=== PATIENT | male | born 1975 | race Caucasian/White ===

== ENCOUNTER 2019-04-11 10:42 | Inpatient (IN) ==
--- NOTE | 2019-04-11 12:08 | XRay Report ---
XR chest 1V portable CLINICAL HISTORY: Sepsis COMPARISON STUDY: No previous studies for comparison. FINDINGS: The cardiac and mediastinal contours are normal. There is no evidence of focal pulmonary co nsolidation. There is no evidence of failure. No pleural effusions are visualized.[ IMPRESSION: No active disease in the chest. Electronically signed by: Temo Beal M.D. 04/11/2019 12:06 PM
[2019-04-11] MEDS ORDERED: ACETAMINOPHEN 1,000 MG/100 ML VIAL IV STA (12:18)
[2019-04-11] MEDS ORDERED: SODIUM CHLORIDE 0.9% 1000ML 2,000 ML IV ONE (12:18)
[2019-04-11 12:23] LABS: Basophils # (auto) 0.02 K/uL (0-0.2); Basophils % (auto) 0.2 %; Eosinophils # (auto) 0.01 K/uL (0-0.5); Eosinophils % (auto) 0.1 %; Hematocrit (blood only) 32.6 % (42-52); Hemoglobin 10.7 g/dL (14.0-18.0); Immature Granulocytes # (auto) 0.02 K/uL (0.00-0.02); Immature Granulocytes % (auto) 0.2 %; Lymphocytes % (auto) 11.9 %; Mean Corpuscular Hemoglobin 28.6 pg (25-34); Mean Corpuscular Hgb Conc 32.8 g/dL (32-36); Mean Corpuscular Volume 87.2 fL (80-100); Mean Platelet Volume 9.3 fL (7.4-10.4); Monocytes # (auto) 0.66 K/uL (0.11-0.59); Monocytes % (auto) 5.6 %; Neutrophils # (auto) 9.64 K/uL (1.4-6.5); Platelet Count 524 K/uL (130-400); RDW Coefficient of Variation 15.7 % (11.5-14.5); RDW Standard Deviation 50.7 fL (36.4-46.3); Red Blood Count 3.74 M/uL (4.7-6.1); White Blood Count 11.75 K/uL (4.8-10.8)
[2019-04-11 12:41] LABS: Alanine Aminotransferase 12 U/L (12-78); Albumin Level 3.4 gm/dl (3.4-5.0); Aspartate Aminotransferase 8 U/L (15-37); BUN Creatinine Ratio 6.6 (10-20); Blood Urea Nitrogen 6 mg/dl (7-18); Calcium 9.2 mg/dl (8.5-10.1); Carbon Dioxide 20 mmol/L (21-32); Chloride 107 mmol/L (98-107); Creatinine Clr Calc Pharmacy 104.6 ml/min; Est GFR (African American) 114.6; Est GFR (Non-African American) 98.9; Glucose 97 mg/dl (70-99); Potassium 3.3 mmol/L (3.5-5.1); Sodium 136 mmol/L (136-145)
[2019-04-11 12:46] LABS: Albumin Globulin Ratio 0.8 (0.9-2); Alkaline Phosphatase 113 U/L (45-117); Bilirubin,Total 0.3 mg/dl (0.2-1); Globulin 4.2 gm/dl (2.5-4.0); Total Protein 7.6 gm/dl (6.4-8.2); Troponin I < 0.015 ng/ml (0-0.045)
[2019-04-11 12:50] LABS: INR 1.1 (0.9-1.1); Partial Thromboplastin Ratio 0.9; Partial Thromboplastin Time 25.4 Seconds (21.0-31.0)
[2019-04-11] MEDS ORDERED: IOVERSOL 100ml IV PRN (13:16)
--- NOTE | 2019-04-11 13:55 | CT Scan Report ---
ABDOMEN AND PELVIS CT WITH IV CONTRAST CT DOSE: 445.45 mGy.cm HISTORY: Acute generalized abdominal pain patient with history of colon cancer. Acute sepsis. colon c a, rectal/abd pain TECHNIQUE: Multiaxial CT images of the abdomen and pelvis were performed following the IV administrat ion of 94 cc of Optiray 320, A dose lowering technique was utilized adhering to the principles of AL MICKEY. COMPARISON STUDY: Chest radiograph of same day FINDINGS: Lung bases are generally clear without evidence of pulmonary metastasis. Imaged inferior cardiac aisha bers are unremarkable. Spleen, pancreas, gallbladder and adrenal glands are unremarkable. There are m ultiple hepatic metastasis noted throughout the right left hepatic lobes measuring up to 4.8 cm and t he left lobe and 5.1 cm on the right. Patency of the hepatic and portal veins. No biliary ductal dila tion. Kidneys are unremarkable. There is mild right-sided pelvocaliectasis with mild prominence of th e proximal right ureter. Aorta and IVC are unremarkable. There are multiple prominent periaortic lymp h nodes measuring up to 8 mm in short axis. Moderate fecal retention. No bowel obstruction. Irregular mass of the distal sigmoid colon measures u p to approximately 3.3 x 3.3 cm on image 361 series 3 and extends through the serosa. Multiple enlarg ed lymph nodes/soft tissue nodules of the adjacent sigmoid mesocolon compatible with metastasis. Ther e is extensive surrounding inflammatory stranding with free fluid surrounding the sigmoid, rectum and perianal tissues. Soft tissue thickening/nodularity of the presacral tissues measures up to 4.3 x 1. 9 cm. There is a sinus tract/fistula extending from the sigmoid colon at the level of the mass into t he perisigmoidal, perirectal and perianal tissues which extends through the levator ani musculature i nto the right gluteus papo. Air and fluid within this distribution is noted compatible with perire ctal and gluteal abscess. The fluid collections themselves each measure approximately 1.2 cm. Soft ti ssue from the sigmoid colon mass extends towards the prostate and posterior base of the urinary bladd er. Tiny fat filled periumbilical hernia, diastases 1.5 cm. Colonic diverticulosis. The appendix is n ot diagnostically visualized. No evidence of osseous metastatic disease. IMPRESSION: 1. Large infiltrative mass of the distal sigmoid colon measuring up to 3.3 cm compatible with colorec ashia carcinoma. The mass extends through the serosa into the adjacent sigmoid mesocolon abutting the p rostate. There is a large associated perirectal/perianal fistula with extension through the levator a ni musculature into the right gluteus papo. Small associated perirectal, perianal and gluteal absc ess collections, predominantly containing air without significant drainable fluid. 2. Prominent periaortic lymph nodes with multiple metastatic nodes/soft tissue nodules of the pelvis as above. 3. Hepatic metastasis. 4. Moderate fecal retention without bowel obstruction identified. 5. Additional findings as above. Electronically signed by: James Lackey M.D. 04/11/2019 1:54 PM
[2019-04-11] MEDS ORDERED: VANCOMYCIN CONSULT ACTIVE PRN ×2 (14:31→19:51)
[2019-04-11] MEDS ORDERED: PIPERACILL/TAZOBAC CONSULT ACTIVE PRN ×2 (14:31→19:51)
[2019-04-11] MEDS ORDERED: PIPERACILLIN/TAZOBACTAM 4.5 GM/120 ML BAG IV ONE (14:31)
[2019-04-11] MEDS ORDERED: VANCOMYCIN HCL 1,750 MG in SODIUM CHLORIDE 0.9% 500 ML IV ONE (14:31)
--- NOTE | 2019-04-11 16:51 | Surgery Consultation ---
Date of Consultation April 11, 2019 Assessment & Plan (1) Colorectal cancer: No acute surgical findings. Would agree to treat with IV abx and bowel regimen. If condition deteriorates would transfer for IR or colorectal surgery. History of Present Illness History of Present Illness 43 y/o male recently diagnosed with colorectal cancer returned home to [place] after being diagnosed in the [facility] area. Had percutaneous drainage of abscess along with IV and po antibiotics. Drain fell out while he was raveling home. He finished the oral antibiotics 6 days ago. Has not been feeling well for the past few days, has rectal pressure, frequent BMs. Was scheduled to begin chemo today at [facility]. Has established with [facility]. Allergies Allergy/AdvReac Type Severity Reaction Status Date / Time No Known Allergies Allergy Unverified 04/11/19 11:28 Home Medications Home Medications Medication Instructions Recorded Confirmed Type trazodone 50 mg PO HS 04/11/19 04/11/19 History Patient History Social History Feels Safe at Home: Yes Smoking Status: Current every day smoker Review of Systems Constitutional: + anorexia; no fever, no chills and no sweats Gastrointestinal: no nausea and no vomiting Physical Exam Constitutional: WD/WN, vitals as above Gastrointestinal (Abdomen): Percussion/Palpation: abdomen soft; abdomen nontender Rectal Exam: normal visual inspection of rectum (right upper gluteal wound healed from perc drain) Results & Data Vital Signs (Past 12 Hours) Vital Signs Temp Pulse Pulse Resp BP BP Pulse Ox 04/11/19 14:40 37.2 C 89 18 140/87 96 04/11/19 13:00 87 16 125/82 100 04/11/19 11:50 97 H 20 117/87 98 04/11/19 11:47 100 04/11/19 11:00 101 H 16 121/75 100 04/11/19 10:45 36.6 C 107 H 20 130/81 100 Diagnostic Findings ABDOMEN AND PELVIS CT WITH IV CONTRAST CT DOSE: 445.45 mGy.cm HISTORY: Acute generalized abdominal pain patient with history of colon cancer. Acute sepsis. colon ca, rectal/abd pain TECHNIQUE: Multiaxial CT images of the abdomen and pelvis were performed following the IV administration of 94 cc of Optiray 320, A dose lowering technique was utilized adhering to the principles of ALARA. COMPARISON STUDY: Chest radiograph of same day FINDINGS: Lung bases are generally clear without evidence of pulmonary metastasis. Imaged inferior cardiac chambers are unremarkable. Spleen, pancreas, gallbladder and adrenal glands are unremarkable. There are multiple hepatic metastasis noted throughout the right left hepatic lobes measuring up to 4.8 cm and the left lobe and 5.1 cm on the right. Patency of the hepatic and portal veins. No biliary ductal dilation. Kidneys are unremarkable. There is mild right-sided pelvocaliectasis with mild prominence of the proximal right ureter. Aorta and IVC are unremarkable. There are multiple prominent periaortic lymph nodes measuring up to 8 mm in short axis. Moderate fecal retention. No bowel obstruction. Irregular mass of the distal sigmoid colon measures up to approximately 3.3 x 3.3 cm on image 361 series 3 and extends through the serosa. Multiple enlarged lymph nodes/soft tissue nodules of the adjacent sigmoid mesocolon compatible with metastasis. There is extensive surrounding inflammatory stranding with free fluid surrounding the sigmoid, rectum and perianal tissues. Soft tissue thickening/nodularity of the presacral tissues measures up to 4.3 x 1.9 cm. There is a sinus tract/fistula extending from the sigmoid colon at the level of the mass into the perisigmoidal, perirectal and perianal tissues which extends through the levator ani musculature into the right gluteus papo. Air and fluid within this distribution is noted compatible with perirectal and gluteal abscess. The fluid collections themselves each measure approximately 1.2 cm. Soft tissue from the sigmoid colon mass extends towards the prostate and posterior base of the urinary bladder. Tiny fat filled periumbilical hernia, diastases 1.5 cm. Colonic diverticulosis. The appendix is not diagnostically visualized. No evidence of osseous metastatic disease. IMPRESSION: 1. Large infiltrative mass of the distal sigmoid colon measuring up to 3.3 cm compatible with colorectal carcinoma. The mass extends through the serosa into the adjacent sigmoid mesocolon abutting the prostate. There is a large associated perirectal/perianal fistula with extension through the levator ani musculature into the right gluteus papo. Small associated perirectal, perianal and gluteal abscess collections, predominantly containing air without significant drainable fluid. 2. Prominent periaortic lymph nodes with multiple metastatic nodes/soft tissue nodules of the pelvis as above. 3. Hepatic metastasis. 4. Moderate fecal retention without bowel obstruction identified. 5. Additional findings as above. Electronically signed by: James Lackey M.D. 04/11/2019 1:54 PM PG Care Time/CCT Total # of Minutes Spent Total Time Spent with Patient: Total time spent is greater than 50% in coordin ation of care (as documented) at patient's floor/unit and/or counseling patient:
[2019-04-11] MEDS ORDERED: ALUMINUM/MAGNESIUM SUSP 30 ML UDC PO PRN (19:35)
[2019-04-11] MEDS ORDERED: MAGNESIUM HYDROXIDE SUSP 30 ML UDC PO PRN (19:35)
--- NOTE | 2019-04-11 19:59 | History & Physical Report ---
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 Proven by liver biopsy. At that time he got a drain placed and he was started on IV antibiotics then switched to oral antibiotics. During his travel to [place] where he grew up, the drain fell out. He continued the oral antibiotics until a week ago. Then today he started having some heaviness in the rectal area and feeling of urgency, multiple visits to the bathroom with no bowel movement, said slight clear discharge comes out. He denies any fever or chills but he felt that his infection is coming back, No family history of colorectal cancer. Admits to tobacco use but no alcohol CT scan abdomen and pelvis as below 1. Large infiltrative mass of the distal sigmoid colon measuring up to 3.3 cm compatible with colorectal carcinoma. The mass extends through the serosa into the adjacent sigmoid mesocolon abutting the prostate. There is a large associated perirectal/perianal fistula with extension through the levator ani musculature into the right gluteus papo. Small associated perirectal, perianal and gluteal abscess collections, predominantly containing air without significant drainable fluid. 2. Prominent periaortic lymph nodes with multiple metastatic nodes/soft tissue nodules of the pelvis as above. 3. Hepatic metastasis. 4. Moderate fecal retention without bowel obstruction identified. 5. Additional findings as above. Primary Care Provider: NO PCP Allergies Allergy/AdvReac Type Severity Reaction Status Date / Time No Known Allergies Allergy Unverified 04/11/19 11:28 Home Medications Home Medications Medication Instructions Recorded Confirmed Type trazodone 50 mg PO HS 04/11/19 04/11/19 History Past Med/Surg History Medical History Colon cancer Family History Other Family history non-contributory Social History marital status: Single Current Living Situation: Family current occupational status: unemployed Feels Safe at Home: Yes Smoking Status: Current every day smoker Review of Systems Review of Systems: Review of system Constitutional: No fever / no chills / no sweats / no weakness / no fatigue Eyes: no blurring of vision / no eye pain / no discharge / no redness ENT: no hearing loss / no epistaxis /no swallowing problems Respiratory: no cough / no wheezing / no SOB / no hemoptysis Cardiovascular: no Chest pain / no lower extremity edema / no palpitation Abdomen: Heaviness and pressure in pelvic area/ no nausea / no vomiting / no constipation Musculoskeletal: no joint pain / no muscle pain / no joint swelling Genitourinary: no dysuria / no incontinence / no urinary retention Neurologic: no focal weakness / no numbness/tingling / no ataxia Psychiatric: no depression symptoms / no anxiety / no insomnia Endocrine: no excessive thirst / no excessive urination Hematologic: no abnormal bleeding / no bruising / no LN swelling Skin: No rash / no pallor Physical Exam Physical Exam: Physical examination General patient appears to be comfortable, not in acute distress HEENT: Atraumatic , normocephalic /no jaundice /no pallor /anicteric /no dry mucous membrane /normal external ear inspection Neck: Supple /no swelling /central trach Heart: S1/S2 normal/regular rate and rhythm/no gallop /no rub /no murmur Lungs: Clear to auscultation bilaterally/normal chest with expansion/no rhonchi/no rales/no wheezing/no use of accessory muscles of respiration Abdomen: Soft/nontender/no guarding/no rebound/no organomegaly/no pulsatile mass Musculoskeletal: No swelling/no edema/no tenderness/normal range of motion Neuro exam: Awake alert oriented 3/cranial nerves II through XII appear to be intact/sensation intact/moves all extremities/no abnormal movements Psychiatric evaluation: No depressed mood/normal affect Skin: No rash on exposed skin area/no erythema Extremity: Normal pulse/no pitting edema/no clubbing or cyanosis Endocrine/lymphatic: No obvious lymphadenopathy /no lymphedema Refused rectal exam, said that already has been done today Results & Data Vital Signs (Past 12 Hours) Vital Signs Temp Pulse Pulse Resp BP BP Pulse Ox 04/11/19 18:25 84 16 140/83 100 04/11/19 14:40 37.2 C 89 18 140/87 96 04/11/19 13:00 87 16 125/82 100 04/11/19 11:50 97 H 20 117/87 98 04/11/19 11:47 100 04/11/19 11:00 101 H 16 121/75 100 04/11/19 10:45 36.6 C 107 H 20 130/81 100 Code Status & VTE Plan VTE Prophylaxis Plan VTE Prophylaxis will be ordered: Yes PG Care Time/CCT Total # of Minutes Spent Total Time Spent with Patient: 35 minutes total time spent is greater than 50% in coordination of care (as documented) at patient's floor/unit and/or counseli ng patient/family discussion of care with nursing staff (1) Colon cancer Colon location: unspecified part of colon Qualified Code(s): C18.9 - Malignant neoplasm of colon, unspecified
--- NOTE | 2019-04-11 20:21 | Emergency Department Note ---
Entered by Ivanna Pederson acting as a scribe for History of Present Illness General Chief complaint: Urinary Symptoms Stated complaint: FREQUENT NEED TO URINATE Time Seen by Provider: 04/11/19 12:09 Source: patient History of Present Illness Onset (ago): day(s) 3 Location: buttocks (rectal) Severity: similar to prior episodes (infection in colon) Pain Consistency: + other (worsening) Maximum Pain Intensity: 2 Quality: + other (pressure like needs to move bowels) Associated symptoms: + denies other symptoms (burning with urination, congestio n, hematochezia, melena, diarrhea), + loss of appetite and + other (lower abdominal pain); no cough, no fever/chills (fever) and no nausea/vomiting (nausea) The patient is a 43 year old male who presents to the Emergency Room with complaints of worsening rectal pain starting 3 days ago. The patient states that a month ago he was diagnosed with cancer. He states that he was having this slight rectal pain and lower abdominal pain. He states that when he went to the hospital, they ended up diagnosing him with a cyst that was infected in his colon and colon cancer that metastasized to his liver. He reports that he was diagnosed where he had been living in [place], [place] for 16 years, but he moved here since his family is here to be closer to them. He notes that they started him on antibiotics that he stopped 6 days ago. The patient states that since then he has been following with [place] for his cancer. He reports that he met with Dr. Mane- Colorectal Surgeon in [place] 1.5 weeks ago and he expressed concern that his infection may return. He states that he then met with Dr. Cannon- Oncologist in [place] who was going to start him on chemo today, but he said that for the last 3 days he has had new more intense symptoms. The patient states that for the last 3 days he has had rectal pain that is much worse that slightly reminds him of when he had his infection. He reports that it feels like a pressure. He notes that he has also had the urge to move his bowels all the time and cannot get off the toilet because of it. He states that most of the time when he has this feeling, he is moving his bowels. He reports that it is definitely larger bowel movements in the morning and smaller ones at night. The patient states that he did call his colorectal surgeon in [place] before coming in, but he is in surgery all day and decided it be best he come to the ED to figure out what is going on. The patient complains of a loss of appetite. The patient denies burning with urination, fever, cough, congestion, hematochezia, melena, diarrhea, and nausea. 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 and A total of 10 systems reviewed and were otherwise negative Physical Exam Vital Signs Vital Signs - 24 hr 04/11/19 10:45 04/11/19 11:00 04/11/19 11:47 Temperature 36.6 C Temperature Source Oral Sepsis Recent Fever Within 48 Hours No Sepsis Action Taken by Nursing No Action Required Pulse Rate 107 H Pulse Rate [Finger] 101 H Pulse Rhythm Regular Pulse Strength Normal Respiratory Rate 20 16 Respiratory Effort / Characteristics Non-Labored Spontaneous Respiratory Depth Normal Respiratory Pattern Regular Blood Pressure 130/81 Blood Pressure [Right Arm] 121/75 Blood Pressure Mean 97 Blood Pressure Mean [Right Arm] 90 Blood Pressure Position Sitting Blood Pressure Position [Right Arm] Pulse Oximetry 100 100 100 Oxygen Delivery Method Room Air Room Air Room Air 04/11/19 11:50 04/11/19 13:00 04/11/19 14:40 Temperature 37.2 C Temperature Source Oral Sepsis Recent Fever Within 48 Hours Sepsis Action Taken by Nursing Pulse Rate Pulse Rate [Finger] 97 H 87 89 Pulse Rhythm Pulse Strength Respiratory Rate 20 16 18 Respiratory Effort / Characteristics Non-Labored Spontaneous Respiratory Depth Normal Respiratory Pattern Regular Blood Pressure Blood Pressure [Right Arm] 117/87 125/82 140/87 Blood Pressure Mean Blood Pressure Mean [Right Arm] 97 96 104 Blood Pressure Position Blood Pressure Position [Right Arm] Lying Pulse Oximetry 98 100 96 Oxygen Delivery Method Room Air Room Air 04/11/19 18:25 Temperature Temperature Source Sepsis Recent Fever Within 48 Hours Sepsis Action Taken by Nursing Pulse Rate Pulse Rate [Finger] 84 Pulse Rhythm Pulse Strength Respiratory Rate 16 Respiratory Effort / Characteristics Respiratory Depth Respiratory Pattern Blood Pressure Blood Pressure [Right Arm] 140/83 Blood Pressure Mean Blood Pressure Mean [Right Arm] 102 Blood Pressure Position Blood Pressure Position [Right Arm] Pulse Oximetry 100 Oxygen Delivery Method GENERAL: Awake, alert, fatigued-appearing, in no distress HENT: Normocephalic, atraumatic. Oropharynx with dry mucous membranes and otherwise unremarkable. EYES: Normal conjunctiva. Sclera non-icteric. NECK: Supple. No nuchal rigidity. FROM. No JVD. RESPIRATORY: Clear to auscultation bilaterally. CARDIAC: Regular rate, normal rhythm. Extremities warm and well perfused. Pulses equal. ABDOMEN: Soft, non-distended. No tenderness to palpation. No rebound or guarding. No masses. RECTAL: No peritoneal/gluteal edema, erythema, or tenderness. Rectal exam without palpable areas of fluctuance or tenderness. MUSCULOSKELETAL: Chest examination reveals no tenderness. The back is symmetrical on inspection without obvious abnormality. There is no CVA tenderness to palpation. No joint edema. LOWER EXTREMITIES: Calves are equal size bilaterally and non-tender. No edema. No discoloration. NEURO: Normal sensorium. No sensory or motor deficits noted. SKIN: No rash or jaundice noted. Course 1216: The patient was evaluated in room C11B. A complete history and physical exam was performed. 1454: I reevaluated the patient and updated him on his test results at this time. 1530: I discussed the margie's case with the surgeon from [place]. He states that if the patient has no necrotizing fascitis, then he needs to be transferred to [facility] if our surgeon will not intervene. He states that if the patient does have necrotizing fascitis, then our surgeon will need to intervene immediately. 1540: I reevaluated the patient and performed a rectal exam at this time. I discussed his test results and the treatment plan with him at this time. He verbally agrees and understands. 1612: I discussed the patient's case with Aly Perez PA-C -General Surgeon. He states that they do not need to do a surgical intervention at this time, but are willing to consult with internal medicine for IV antibiotics. 1651: I discussed the patient's case with Dr. Swartz- Colorectal Surgeon. He agrees with the plan to keep the patient here. 1722: I discussed the patient's case with Dr. Yao- [facility]. He will evaluate the patient for further management. Administered Medications Acetaminophen (Tylenol) 650 mg PO Q4H PRN PRN Reason: pain/fever Stop: 05/11/19 19:34 Last Admin: 04/13/19 23:03 Dose: 650 mg Documented by: [id number] Admin: 04/13/19 15:08 Dose: 650 mg Documented by: [id number] Admin: 04/12/19 08:14 Dose: 650 mg Documented by: [id number] Docusate Sodium (Colace) 100 mg PO BID KATHERINE Stop: 05/12/19 20:59 Last Admin: 04/13/19 20:08 Dose: 100 mg Documented by: [id number] Admin: 04/13/19 08:17 Dose: 100 mg Documented by: [id number] Admin: 04/12/19 21:13 Dose: 100 mg Documented by: [id number] Enoxaparin Sodium (Lovenox) 40 mg SQ QPM KATHERINE Stop: 05/12/19 20:59 Last Admin: 04/13/19 20:09 Dose: 40 mg Documented by: [id number] Admin: 04/12/19 21:13 Dose: 40 mg Documented by: [id number] Vancomycin HCl 1,250 mg/ (Sodium Chloride) 275 mls @ 125 mls/hr IV Q8H KATHERINE Stop: 04/22/19 00:00 Last Admin: 04/13/19 22:27 Dose: 125 mls/hr Documented by: [id number] Infusion: 04/13/19 17:17 Dose: 0 mls/hr Documented by: [id number] Admin: 04/13/19 15:05 Dose: 125 mls/hr Documented by: [id number] Lactated Ringer's (Lr) 1,000 mls @ 999 mls/hr IV .Q1H1M ONE Stop: 04/14/19 00:46 Last Admin: 04/14/19 00:01 Dose: 999 mls/hr Documented by: [id number] Ioversol (Optiray 320 100ml) 94 ml IV ONCE PRN PRN Reason: Interaction Checking Stop: 04/15/19 13:15 Last Admin: 04/11/19 13:16 Dose: 94 ml Documented by: [id number] Morphine Sulfate (Morphine Sulfate) 2 mg IV Q2H PRN PRN Reason: Severe Pain Stop: 04/25/19 19:51 Last Admin: 04/13/19 23:06 Dose: 2 mg Documented by: [id number] Admin: 04/13/19 20:07 Dose: 2 mg Documented by: [id number] Admin: 04/13/19 15:55 Dose: 2 mg Documented by: [id number] Admin: 04/13/19 13:10 Dose: 2 mg Documented by: [id number] Admin: 04/13/19 04:46 Dose: 2 mg Documented by: [id number] Admin: 04/12/19 20:56 Dose: 2 mg Documented by: [id number] Admin: 04/12/19 18:47 Dose: 2 mg Documented by: [id number] Oxycodone HCl (Roxicodone Immediate Rel) 10 mg PO Q4H PRN PRN Reason: Moderate Pain Stop: 04/26/19 18:25 Last Admin: 04/13/19 08:16 Dose: 10 mg Documented by: [id number] Polyethylene Glycol (Miralax Powder Packet) 17 gm PO BID KATHERINE Stop: 05/13/19 08:59 Last Admin: 04/13/19 20:09 Dose: 17 gm Documented by: [id number] Admin: 04/13/19 08:51 Dose: 17 gm Documented by: [id number] Trazodone HCl (Desyrel) 50 mg PO HS KATHERINE Stop: 05/11/19 20:59 Last Admin: 04/13/19 20:08 Dose: 50 mg Documented by: [id number] Admin: 04/12/19 21:13 Dose: 50 mg Documented by: [id number] Admin: 04/11/19 21:47 Dose: 50 mg Documented by: [id number] Discontinued Medications Heparin Sodium (Porcine) (Heparin Sodium (Porcine)) 5,000 units SQ Q8 KATHERINE Stop: 05/11/19 21:59 Last Admin: 04/12/19 13:23 Dose: Not Given Documented by: [id number] Admin: 04/12/19 06:00 Dose: Not Given Documented by: [id number] Admin: 04/11/19 21:47 Dose: Not Given Documented by: [id number] Acetaminophen (Ofirmev) 1,000 mg in 100 mls @ 400 mls/hr IV NOW STA Stop: 04/11/19 12:32 Last Infusion: 04/11/19 12:45 Dose: 0 mls/hr Documented by: [id number] Admin: 04/11/19 12:28 Dose: 400 mls/hr Documented by: [id number] Sodium Chloride (Nss 1000ml) 2,000 mls @ 999 mls/hr IV .Q2H1M ONE Stop: 04/11/19 14:18 Last Infusion: 04/11/19 14:37 Dose: 0 mls/hr Documented by: [id number] Admin: 04/11/19 12:28 Dose: 999 mls/hr Documented by: [id number] Piperacillin Sod/Tazobactam Sod (Zosyn) 4.5 gm in 120 mls @ 240 mls/hr IV NOW ONE Stop: 04/11/19 15:00 Last Infusion: 04/11/19 15:13 Dose: 0 mls/hr Documented by: [id number] Admin: 04/11/19 14:41 Dose: 240 mls/hr Documented by: [id number] Vancomycin HCl 1,750 mg/ (Sodium Chloride) 535 mls @ 200 mls/hr IV NOW ONE Stop: 04/11/19 17:11 Last Infusion: 04/11/19 18:20 Dose: 0 mls/hr Documented by: [id number] Admin: 04/11/19 15:31 Dose: 200 mls/hr Documented by: [id number] Piperacillin Sod/Tazobactam (Sod 3.375 gm/ Dextrose) 115 mls @ 28.75 mls/hr IV Q8H KATHERINE; Protocol Stop: 04/21/19 21:29 Last Infusion: 04/14/19 00:01 Dose: 0 mls/hr Documented by: [id number] Admin: 04/13/19 21:09 Dose: 28.8 mls/hr Documented by: [id number] Infusion: 04/13/19 17:35 Dose: 0 mls/hr Documented by: [id number] Admin: 04/13/19 13:34 Dose: 28.8 mls/hr Documented by: [id number] Infusion: 04/13/19 08:50 Dose: 0 mls/hr Documented by: [id number] Admin: 04/13/19 04:47 Dose: 28.8 mls/hr Documented by: [id number] Infusion: 04/13/19 00:47 Dose: 0 mls/hr Documented by: [id number] Admin: 04/12/19 20:56 Dose: 28.8 mls/hr Documented by: [id number] Infusion: 04/12/19 17:23 Dose: 0 mls/hr Documented by: [id number] Admin: 04/12/19 13:20 Dose: 28.8 mls/hr Documented by: [id number] Infusion: 04/12/19 13:20 Dose: 0 mls/hr Documented by: [id number] Infusion: 04/12/19 10:00 Dose: 0 mls/hr Documented by: [id number] Admin: 04/12/19 06:01 Dose: 28.8 mls/hr Documented by: [id number] Infusion: 04/12/19 01:20 Dose: 0 mls/hr Documented by: [id number] Admin: 04/11/19 21:47 Dose: 28.8 mls/hr Documented by: [id number] Vancomycin HCl 1,250 mg/ (Sodium Chloride) 275 mls @ 125 mls/hr IV Q10H KATHERINE Stop: 04/22/19 00:00 Last Infusion: 04/13/19 08:14 Dose: 0 mls/hr Documented by: [id number] Admin: 04/13/19 06:02 Dose: 125 mls/hr Documented by: [id number] Infusion: 04/12/19 23:22 Dose: 0 mls/hr Documented by: [id number] Admin: 04/12/19 20:56 Dose: 125 mls/hr Documented by: [id number] Infusion: 04/12/19 13:16 Dose: 0 mls/hr Documented by: [id number] Admin: 04/12/19 11:02 Dose: 125 mls/hr Documented by: [id number] Infusion: 04/12/19 02:55 Dose: 0 mls/hr Documented by: [id number] Admin: 04/12/19 00:30 Dose: 125 mls/hr Documented by: [id number] Morphine Sulfate (Morphine Sulfate) 1 mg IV Q4HWA PRN PRN Reason: Pain Stop: 04/25/19 19:51 Last Admin: 04/12/19 17:00 Dose: 1 mg Documented by: [id number] Admin: 04/11/19 22:01 Dose: 1 mg Documented by: [id number] Polyethylene Glycol (Miralax Powder Packet) 17 gm PO DAILY KATHERINE Stop: 05/11/19 19:44 Last Admin: 04/12/19 10:01 Dose: 17 gm Documented by: [id number] Admin: 04/11/19 21:47 Dose: 17 gm Documented by: [id number] Polyethylene Glycol (Miralax Powder Packet) 17 gm PO DAILY KATHERINE Stop: 05/12/19 18:29 Last Admin: 04/12/19 18:47 Dose: 17 gm Documented by: [id number] Impression & Plan Colon cancer, H/O abdominal abscess, Leukocytosis, Perirectal abscess, Perianal fistula Discharge Plan Visit Data *Final* Discharge Date/Time: 04/11/19 20:42 Chief Complaint: Urinary Symptoms Stated Complaint: FREQUENT NEED TO URINATE ED Provider: Grant Rojas Discharge Problem: Colon cancer, H/O abdominal abscess, Leukocytosis, Perirectal abscess, Perianal fistula Patient Disposition: Admitted As Inpatient Discharge Instructions Interventions: ED Discharge Assessment Last Done: 04/11/19 20:42 Medical Decision Making Differential Diagnosis Differential diagnoses includes but is not limited to gastritis, peptic ulcer disease, GERD, gallbladder disease, pancreatitis, small bowel obstruction, acute coronary syndrome, pericarditis, ischemic bowel, irritable bowel disease, irritable bowel syndrome, appendicitis, diverticulitis, malignancy, hernia, urinary tract infection, torsion, perforation, trauma, infectious. Medical Records Attestation: I reviewed the patient's medical records. Home Medications Current Medication List: was personally reviewed by me Laboratory Data Attestation: I reviewed the patient's lab results. Result diagrams: 04/13/19 05:26 04/13/19 05:26 Lab Results 04/11/19 04/11/19 04/11/19 Range/Units 11:57 11:57 11:57 WBC 11.75 H (4.8-10.8) K/uL RBC 3.74 L (4.7-6.1) M/uL Hgb 10.7 L (14.0-18.0) g/dL Hct 32.6 L (42-52) % MCV 87.2 (80-100) fL MCH 28.6 (25-34) pg MCHC 32.8 (32-36) g/dL RDW Std Deviation 50.7 H (36.4-46.3) fL RDW Coeff of Torie 15.7 H (11.5-14.5) % Plt Count 524 H (130-400) K/uL MPV 9.3 (7.4-10.4) fL Immature Gran % (Auto) 0.2 % Neut % (Auto) 82.0 % Lymph % (Auto) 11.9 % [place] % (Auto) 5.6 % Eos % (Auto) 0.1 % Baso % (Auto) 0.2 % Immature Gran # (Auto) 0.02 (0.00-0.02) K/uL Neut # (Auto) 9.64 H (1.4-6.5) K/uL Lymph # (Auto) 1.40 (1.2-3.4) K/uL [place] # (Auto) 0.66 H (0.11-0.59) K/uL Eos # (Auto) 0.01 (0-0.5) K/uL Baso # (Auto) 0.02 (0-0.2) K/uL PT 11.0 (9.0-12.0) Seconds INR 1.1 (0.9-1.1) APTT 25.4 (21.0-31.0) Seconds PTT Ratio 0.9 Sodium 136 (136-145) mmol/L Potassium 3.3 L (3.5-5.1) mmol/L Chloride 107 (98-107) mmol/L Carbon Dioxide 20 L (21-32) mmol/L Anion Gap 9.0 (3-11) BUN 6 L (7-18) mg/dl Creatinine 0.94 (0.6-1.4) mg/dl Est Cr Clr Drug Dosing 104.6 ml/min Est GFR ( Amer) 114.6 Est GFR (Non-Af Amer) 98.9 BUN/Creatinine Ratio 6.6 L (10-20) Glucose 97 (70-99) mg/dl POC Lactic Acid Carlos (0.90-1.70) mmol/L Calcium 9.2 (8.5-10.1) mg/dl Magnesium 2.0 (1.8-2.4) mg/dl Total Bilirubin 0.3 (0.2-1) mg/dl AST 8 L (15-37) U/L ALT 12 (12-78) U/L Alkaline Phosphatase 113 (45-117) U/L Troponin I < 0.015 (0-0.045) ng/ml Total Protein 7.6 (6.4-8.2) gm/dl Albumin 3.4 (3.4-5.0) gm/dl Globulin 4.2 H (2.5-4.0) gm/dl Albumin/Globulin Ratio 0.8 L (0.9-2) 04/11/19 Range/Units 12:04 WBC (4.8-10.8) K/uL RBC (4.7-6.1) M/uL Hgb (14.0-18.0) g/dL Hct (42-52) % MCV (80-100) fL MCH (25-34) pg MCHC (32-36) g/dL RDW Std Deviation (36.4-46.3) fL RDW Coeff of Torie (11.5-14.5) % Plt Count (130-400) K/uL MPV (7.4-10.4) fL Immature Gran % (Auto) % Neut % (Auto) % Lymph % (Auto) % [place] % (Auto) % Eos % (Auto) % Baso % (Auto) % Immature Gran # (Auto) (0.00-0.02) K/uL Neut # (Auto) (1.4-6.5) K/uL Lymph # (Auto) (1.2-3.4) K/uL [place] # (Auto) (0.11-0.59) K/uL Eos # (Auto) (0-0.5) K/uL Baso # (Auto) (0-0.2) K/uL PT (9.0-12.0) Seconds INR (0.9-1.1) APTT (21.0-31.0) Seconds PTT Ratio Sodium (136-145) mmol/L Potassium (3.5-5.1) mmol/L Chloride (98-107) mmol/L Carbon Dioxide (21-32) mmol/L Anion Gap (3-11) BUN (7-18) mg/dl Creatinine (0.6-1.4) mg/dl Est Cr Clr Drug Dosing ml/min Est GFR ( Amer) Est GFR (Non-Af Amer) BUN/Creatinine Ratio (10-20) Glucose (70-99) mg/dl POC Lactic Acid Carlos 1.18 (0.90-1.70) mmol/L Calcium (8.5-10.1) mg/dl Magnesium (1.8-2.4) mg/dl Total Bilirubin (0.2-1) mg/dl AST (15-37) U/L ALT (12-78) U/L Alkaline Phosphatase (45-117) U/L Troponin I (0-0.045) ng/ml Total Protein (6.4-8.2) gm/dl Albumin (3.4-5.0) gm/dl Globulin (2.5-4.0) gm/dl Albumin/Globulin Ratio (0.9-2) Imaging Data Radiologist's Impression: Radiology results as stated below per my review and the radiologist's interpretation: XR chest 1V portable CLINICAL HISTORY: Sepsis COMPARISON STUDY: No previous studies for comparison. FINDINGS: The cardiac and mediastinal contours are normal. There is no evidence of focal pulmonary consolidation. There is no evidence of failure. No pleural effusions are visualized.[ IMPRESSION: No active disease in the chest. Electronically signed by: Temo Beal M.D. 04/11/2019 12:06 PM ABDOMEN AND PELVIS CT WITH IV CONTRAST CT DOSE: 445.45 mGy.cm HISTORY: Acute generalized abdominal pain patient with history of colon cancer. Acute sepsis. colon ca, rectal/abd pain TECHNIQUE: Multiaxial CT images of the abdomen and pelvis were performed following the IV administration of 94 cc of Optiray 320, A dose lowering technique was utilized adhering to the principles of ALARA. COMPARISON STUDY: Chest radiograph of same day FINDINGS: Lung bases are generally clear without evidence of pulmonary metastasis. Imaged inferior cardiac chambers are unremarkable. Spleen, pancreas, gallbladder and adrenal glands are unremarkable. There are multiple hepatic metastasis noted throughout the right left hepatic lobes measuring up to 4.8 cm and the left lobe and 5.1 cm on the right. Patency of the hepatic and portal veins. No biliary ductal dilation. Kidneys are unremarkable. There is mild right-sided pelvocaliectasis with mild prominence of the proximal right ureter. Aorta and IVC are unremarkable. There are multiple prominent periaortic lymph nodes measuring up to 8 mm in short axis. Moderate fecal retention. No bowel obstruction. Irregular mass of the distal s igmoid colon measures up to approximately 3.3 x 3.3 cm on image 361 series 3 and extends through the serosa. Multiple enlarged lymph nodes/soft tissue nodules of the adjacent sigmoid mesocolon compatible with metastasis. There is extensive surrounding inflammatory stranding with free fluid surrounding the sigmoid, rectum and perianal tissues. Soft tissue thickening/nodularity of the presacral tissues measures up to 4.3 x 1.9 cm. There is a sinus tract/fistula extending from the sigmoid colon at the level of the mass into the perisigmoidal, perirectal and perianal tissues which extends through the levator ani musculature into the right gluteus papo. Air and fluid within this distribution is noted compatible with perirectal and gluteal abscess. The fluid collections themselves each measure approximately 1.2 cm. Soft tissue from the sigmoid colon mass extends towards the prostate and posterior base of the urinary bladder. Tiny fat filled periumbilical hernia, diastases 1.5 cm. Colonic diverticulosis. The appendix is not diagnostically visualized. No evidence of osseous metastatic disease. IMPRESSION: 1. Large infiltrative mass of the distal sigmoid colon measuring up to 3.3 cm co mpatible with colorectal carcinoma. The mass extends through the serosa into the adjacent sigmoid mesocolon abutting the prostate. There is a large associated perirectal/perianal fistula with extension through the levator ani musculature into the right gluteus papo. Small associated perirectal, perianal and gluteal abscess collections, predominantly containing air without significant drainable fluid. 2. Prominent periaortic lymph nodes with multiple metastatic nodes/soft tissue nodules of the pelvis as above. 3. Hepatic metastasis. 4. Moderate fecal retention without bowel obstruction identified. 5. Additional findings as above. Electronically signed by: James Lackey M.D. 04/11/2019 1:54 PM ECG Data Attestation: I personally reviewed and interpreted this ECG as follows: Indication: + abdominal pain Rate (beats per minute): 94 Rhythm: + normal sinus ECG [place]: + Normal ECG ST segments: no ST depression and no ST elevation ECG Findings: + Other (QT-c 437); no PACs and no PVCs Blood Pressure Blood Pressure Findings: Elevated blood pressure Blood Pressure Disposition: further management by hospitalist JANE High The patient is a pleasant 46-year-old gentleman with a past medical history of a recent diagnosis of colon cancer last month when he was traveling in [place] found to have an associated colorectal abscess that was drained and treated with IV antibiotics, subsequently discharged with drain in place but was dislodged prematurely when flying back to the [facility] seen at outside hospital in [place] with CT scan that did not demonstrate any re-accumulation of a drainable collection and patient was still on antibiotics therefore was discharged with outpatient follow-up who now presents emergency department with worsening rectal pain particular with defecation and is concern for return of his previous infection per hpi. Of note, the patient reports he was scheduled to begin chemotherapy today and is following with [facility] colorectal surgery , and oncology., He reports because his symptoms were becoming increasingly painful he came to the emergency department as he was told that he not begin chemotherapy if his infection is actively returned. On arrival patient is comfortable but no acute distress, afebrile stable vital signs. Patient appears clinically dry. His abdomen is benign. The genital anal/perineal area is unremarkable without skin changes edema crepitus or tenderness. Rectal exam without any palpable rectal abscess, fissures, or fistulas. WBC slightly elevated at 11. Chemistry without acidosis. Electrolytes and LFTs unremarkable. CT and pelvis was performed and demonstrated patient's known colorectal mass with additional evidence of extension into the musculature with fistulization. Also seen are areas consistent with abscess formation though mostly air-filled without any drainable fluid collection. Given the patient's report of having a CAT scan also not showing any "drainable collection" unclear to the extent that these findings are new/worse versus similar. There is evidence of fecal retention which given the patient's inflammatory changes would also explain the patient's pain. However given the patient's new symptoms will treat empirically with IV antibiotics. Case was discussed with Dr. Swartz, colorectal surgery on-call for the patient's surgeon who agreed that given the patient is hemodynamically stable without any evidence of need for emergent surgery could be reasonable to admit here if our surgery team was agreeable. Case was discussed with Aly Perez, general surgery PA-Reza with, Dr. Coyle general surgeon and they agree with plan to admit here to the medicine service with IV antibiotics and they will be available for inpatient consultation. However patient would not likely require surgery at this time. If patient were to worsen then he would need transfer to [facility] for intervention. Case was discussed with Dr. Yao, [facility] hospitalist, who will evaluate the patient for admission. Discharge Problem: Colon cancer Qualifiers: Colon location: unspecified part of colon Qualified Code(s): C18.9 - Malignant neoplasm of colon, unspecified The scribe's documentation has been prepared under my direction and personally reviewed by me in its entirety. I confirm that the note above accurately reflects all work, treatment, procedures, and medical decision making performed by me.
[2019-04-11] MEDS ORDERED: PIPERACILLIN/TAZOBACTAM 4.5 GM in DEXTROSE 5% 100 ML IV SCH (21:00)
[2019-04-11] MEDS: PIPERACILLIN/TAZOBACTAM 3.375 GM in DEXTROSE 5% 100 ML IV SCH (21:47)
[2019-04-11] MEDS: HEPARIN SOD 5,000 UNIT/0.5 ML VIAL SQ SCH (21:47)
[2019-04-11] MEDS: TRAZODONE HCL 50 MG TAB PO SCH (21:47)
[2019-04-11] MEDS: POLYETHYLENE (MIRALAX) 17 GM PACK PO SCH (21:47)
[2019-04-11] MEDS: MoRPHine SULFATE 2 MG/ML CARP IV PRN (22:01)
[2019-04-11 23:38] LABS: Appearance Urine Clear (Clear); Bilirubin Urine Negative (Negative); Blood Urine Negative (Negative); Color Urine Yellow; Glucose Urine UA Negative (Negative); Ketones Urine Negative (Negative); Leukocyte Esterase Urine Negative (Negative); Nitrite Urine Negative (Negative); Protein Urine Negative (Negative); Urobilinogen Urine Negative (Negative)
[2019-04-12] MEDS: VANCOMYCIN HCL 1,250 MG in SODIUM CHLORIDE 0.9% 250 ML IV SCH ×3 (00:30→20:56)
[2019-04-12] MEDS: HEPARIN SOD 5,000 UNIT/0.5 ML VIAL SQ SCH ×2 (06:00→13:23)
[2019-04-12] MEDS: PIPERACILLIN/TAZOBACTAM 3.375 GM in DEXTROSE 5% 100 ML IV SCH ×3 (06:01→20:56)
--- NOTE | 2019-04-12 07:45 | Infectious Disease Consult ---
Date of Consultation April 12, 2019 Assessment & Plan (1) Perirectal abscess: 43-year-old male with metastatic colorectal cancer, with abdominal and pelvic infection in the setting of cancer mass to the bowel wall with fistula formation, with small abscesses seen on CT scan. For now, pending further culture results, vancomycin and Zosyn should provide adequate coverage. Will likely need to stay on antibiotics until source control can be achieved. Will discuss further with all involved. Will follow. (2) Colorectal cancer: History of Present Illness Reason for Consultation: Rectal abscess Attending Physician: Travis Sargent MD History of Present Illness Very pleasant but unfortunate 43-year-old male who was diagnosed approximately 6 weeks ago with metastatic colon cancer, found to have evidence of perirectal abscess which required drain placement. He was treated with IV antibiotics and discharged on Augmentin and returned back to [place]. During his travel, drain fell out. He saw his new colorectal surgeons last week, who felt that antibiotics could be safely discontinued, and was planned to start chemotherapy. However he was now readmitted with several days of progressively worsening pelvic pain. On CT scan was found to have large sigmoid mass with extension through the serosa, with fistulous tract extending into the perirectal and gluteal area, with evidence of small abscess formation. Was seen by surgery and no acute intervention was planned. He has been started empirically on vancomycin and Zosyn, which she has been tolerating so far. He denies any significant fever. Still with significant amount of pain, currently 5 out of 10 in intensity. Allergies Allergy/AdvReac Type Severity Reaction Status Date / Time No Known Allergies Allergy Unverified 04/11/19 11:28 Home Medications Home Medications Medication Instructions Recorded Confirmed Type trazodone 50 mg PO HS 04/11/19 04/11/19 History Patient History Medical History Colon cancer Family History Other Family history non-contributory Social History Preferred Language: Pashto Communication Ability: Effective Mate Fishing Vessel Required: No Beliefs That Will Affect Care: None marital status: Single Current Living Situation: Parent current occupational status: unemployed Feels Safe at Home: Yes Smoking Status: Current every day smoker Tobacco Type: cigarettes ; Cigarettes Per Day: 5 ; Second Hand Exposure: Yes ; Hx Alcohol Use: No Hx Substance Use: No Review of Systems Review of Systems: All systems reviewed & are unremarkable except as noted in HPI & below Physical Exam Constitutional: WD/WN, vitals as above comfortable; no acute distress Eyes: PERRL, conjunctivae normal, anicteric sclerae ENMT: external ear and nose normal, oropharynx normal Neck: trachea midline, no thyromegaly neck nontender Respiratory: normal respiratory effort, lungs clear to auscultation normal percussion; does not use accessory muscles Cardiovascular: Rate/Rhythm: regular rate and regular rhythm Heart Sounds: normal S1 and normal S2; no gallop, no murmur and no cardiac rub Vessels: normal peripheral pulses; no JVD Gastrointestinal (Abdomen): normal bowel sounds, soft, nontender, no hepatosplenomegaly Musculoskeletal: no cyanosis or clubbing, extremities motor strength 5/5 Spine: thoracic spine normal to inspection and lumbar spine normal to inspection; no cervical spinal tenderness Skin: no rashes, warm and dry normal turgor; no lesions Neurologic: moves all extremities and awake; no focal motor deficits and no meningeal signs Psychiatric: A+Ox3, euthymic affect Orientation: cooperative Lymphatic: no cervical or axillary lymphadenopathy no inguinal lymphadenopathy Results & Data Vital Signs (Past 12 Hours) Vital Signs Temp Pulse Resp BP Pulse Ox 04/11/19 23:15 36.8 C 85 16 134/82 98 04/11/19 21:20 36.8 C 75 18 123/80 100 04/11/19 20:00 75 20 126/81 100 Laboratory Results Short CBC 04/11/19 Range/Units 11:57 WBC 11.75 H (4.8-10.8) K/uL Hgb 10.7 L (14.0-18.0) g/dL Hct 32.6 L (42-52) % Plt Count 524 H (130-400) K/uL BMP 04/11/19 11:57 Sodium 136 Potassium 3.3 L Chloride 107 Carbon Dioxide 20 L BUN 6 L Creatinine 0.94 Glucose 97 Calcium 9.2 Cardiac Enzymes 04/11/19 Range/Units 11:57 Troponin I < 0.015 (0-0.045) ng/ml Liver Function 04/11/19 Range/Units 11:57 Total Bilirubin 0.3 (0.2-1) mg/dl AST 8 L (15-37) U/L ALT 12 (12-78) U/L Alkaline Phosphatase 113 (45-117) U/L Albumin 3.4 (3.4-5.0) gm/dl Urine 04/11/19 Range/Units Unknown Urine Color Yellow Urine Appearance Clear (Clear) Urine pH 6.0 (4.5-7.5) Ur Specific [place] 1.010 (1.000-1.030) Urine Protein Negative (Negative) Urine Glucose (UA) Negative (Negative) Diagnostic Findings ABDOMEN AND PELVIS CT WITH IV CONTRAST CT DOSE: 445.45 mGy.cm HISTORY: Acute generalized abdominal pain patient with history of colon cancer. Acute sepsis. colon ca, rectal/abd pain TECHNIQUE: Multiaxial CT images of the abdomen and pelvis were performed following the IV administration of 94 cc of Optiray 320, A dose lowering technique was utilized adhering to the principles of ALARA. COMPARISON STUDY: Chest radiograph of same day FINDINGS: Lung bases are generally clear without evidence of pulmonary metastasis. Imaged inferior cardiac chambers are unremarkable. Spleen, pancreas, gallbladder and adrenal glands are unremarkable. There are multiple hepatic metastasis noted throughout the right left hepatic lobes measuring up to 4.8 cm and the left lobe and 5.1 cm on the right. Patency of the hepatic and portal veins. No biliary ductal dilation. Kidneys are unremarkable. There is mild right-sided pelvocaliectasis with mild prominence of the proximal right ureter. Aorta and IVC are unremarkable. There are multiple prominent periaortic lymph nodes measur ing up to 8 mm in short axis. Moderate fecal retention. No bowel obstruction. Irregular mass of the distal sigmoid colon measures up to approximately 3.3 x 3.3 cm on image 361 series 3 and extends through the serosa. Multiple enlarged lymph nodes/soft tissue nodules of the adjacent sigmoid mesocolon compatible with metastasis. There is extensive surrounding inflammatory stranding with free fluid surrounding the sigmoid, rectum and perianal tissues. Soft tissue thickening/nodularity of the presacral tissues measures up to 4.3 x 1.9 cm. There is a sinus tract/fistula extending from the sigmoid colon at the level of the mass into the perisigmoidal, perirectal and perianal tissues which extends through the levator ani musculature into the right gluteus papo. Air and fluid within this distr ibution is noted compatible with perirectal and gluteal abscess. The fluid collections themselves each measure approximately 1.2 cm. Soft tissue from the sigmoid colon mass extends towards the prostate and posterior base of the urinary bladder. Tiny fat filled periumbilical hernia, diastases 1.5 cm. Colonic diverticulosis. The appendix is not diagnostically visualized. No evidence of osseous metastatic disease. IMPRESSION: 1. Large infiltrative mass of the distal sigmoid colon measuring up to 3.3 cm compatible with colorectal carcinoma. The mass extends through the serosa into the adjacent sigmoid mesocolon abutting the prostate. There is a large associated perirectal/perianal fistula with extension through the levator ani musculature into the right gluteus papo. Small associated perirectal, perianal and gluteal abscess collections, predominantly containing air without significant drainable fluid. 2. Prominent periaortic lymph nodes with multiple metastatic nodes/soft tissue nodules of the pelvis as above. 3. Hepatic metastasis. 4. Moderate fecal retention without bowel obstruction identified. 5. Additional findings as above. Electronically signed by: James Lackey M.D. 04/11/2019 1:54 PM Dictated: 04/11/19 1324 PG Care Time/CCT Total # of Minutes Spent Total Time Spent with Patient: Total time spent is greater than 50% in coordination of care (as documented) at patient's floor/unit and/or counseling patient:
[2019-04-12] MEDS: ACETAMINOPHEN 325 MG TAB PO PRN (08:14)
[2019-04-12 09:12] LABS: Basophils # (auto) 0.04 K/uL (0-0.2); Basophils % (auto) 0.3 %; Eosinophils # (auto) 0.07 K/uL (0-0.5); Eosinophils % (auto) 0.6 %; Hematocrit (blood only) 31.3 % (42-52); Hemoglobin 10.1 g/dL (14.0-18.0); Immature Granulocytes # (auto) 0.02 K/uL (0.00-0.02); Immature Granulocytes % (auto) 0.2 %; Lymphocytes # (auto) 1.23 K/uL (1.2-3.4); Lymphocytes % (auto) 10.5 %; Mean Corpuscular Hgb Conc 32.3 g/dL (32-36); Mean Corpuscular Volume 86.7 fL (80-100); Mean Platelet Volume 9.1 fL (7.4-10.4); Monocytes # (auto) 0.96 K/uL (0.11-0.59); Monocytes % (auto) 8.2 %; Neutrophils # (auto) 9.36 K/uL (1.4-6.5); Neutrophils % (auto) 80.2 %; Platelet Count 458 K/uL (130-400); RDW Coefficient of Variation 15.7 % (11.5-14.5); RDW Standard Deviation 50.8 fL (36.4-46.3); Red Blood Count 3.61 M/uL (4.7-6.1); White Blood Count 11.68 K/uL (4.8-10.8)
[2019-04-12 09:32] LABS: Albumin Level 3.2 gm/dl (3.4-5.0); BUN Creatinine Ratio 4.8 (10-20); Calcium 9.4 mg/dl (8.5-10.1); Creatinine Clr Calc Pharmacy 109.3 ml/min; Est GFR (African American) 120.8; Est GFR (Non-African American) 104.2; Potassium 3.9 mmol/L (3.5-5.1)
[2019-04-12 09:33] LABS: Albumin Globulin Ratio 0.8 (0.9-2); Bilirubin,Total 0.5 mg/dl (0.2-1); Globulin 4.2 gm/dl (2.5-4.0); Total Protein 7.4 gm/dl (6.4-8.2)
--- NOTE | 2019-04-12 10:00 | Surgery Progress Note ---
Date of Service April 12, 2019 Assessment & Plan (1) H/O abdominal abscess: "fistula" formation around perc drain, has not had any drainage since tube dislodged no procedures planned, can have diet abx per ID eventual port placement, PICC may be favorable if extended IV abx are recommende d Supervising Physician Co-Signing Physician Notes Patient seen and examined, labs and imaging reviewed, agree with above. 43-year-old male with newly diagnosed locally advanced rectal cancer with liver metastasis. He had an abscess adjacent to his tumor that was drained percutaneously in [place]. He recently moved back to [place] after the diagnosis, and while he was traveling the drain came out. He also completed antibiotics about a week ago. He then began to develop soreness in his buttock that was similar to prior to drainage. He denied any fevers. He was scheduled to start chemo yesterday but the pain was increasing so he went to the emergency department. CT scan confirmed the tumor along with a fistula with some very small pockets of fluid but no drainable abscess or collection. He was admitted to medicine and started on antibiotics. He has been in consultation with a colorectal surgeon from [place]. On exam he has some firmness in his right buttock at the prior drain insertion site but no induration, erythema, or drainable fluid collection. He is otherwise stable, and his WBC is stable. Recommendations Continue antibiotics No surgical intervention indicated at this time If abscess recurs would recommend percutaneous drainage by interventional radiology He should follow-up with colorectal surgery as an outpatient Surgery will follow peripherally Subjective no new c/o Physical Exam Gastrointestinal (Abdomen): Percussion/Palpation: abdomen soft; abdomen nontender Results & Data Vital Signs (Past 12 Hours) Vital Signs Temp Pulse Resp BP BP Pulse Ox 04/12/19 07:40 36.5 C 103 H 16 111/77 99 04/11/19 23:15 36.8 C 85 16 134/82 98 PG Care Time/CCT Total # of Minutes Spent Total Time Spent with Patient: Total time spent is greater than 50% in coordination of care (as documented) at patient's floor/unit and/or counseling patient:
[2019-04-12] MEDS: POLYETHYLENE (MIRALAX) 17 GM PACK PO SCH (10:01)
--- NOTE | 2019-04-12 10:03 | Pharmacy Report ---
Pharmacy Abx Initial Consult - Date of Service April 12, 2019 - Pharmacy Dosing Scope Date of Consult: 04/12/19 Consultation requested by: Dr. Yao Pharmacy is consulted to initiate Vancomycin IV dosing therapy, order appropriate labs and adjust drug dose/frequency. - Subjective The patient is a 43 year old M admitted on 04/11/19 19:36. - Objective Height: 5 ft 10 in Weight: 85 kg Vital Signs (Past 12hrs): Vital Signs Temp Pulse Resp BP BP Pulse Ox 04/12/19 07:40 36.5 C 103 H 16 111/77 99 04/11/19 23:15 36.8 C 85 16 134/82 98 Lab Results (24hrs): Laboratory Tests (24 Hours) 04/12/19 04/12/19 04/11/19 08:45 08:45 11:57 WBC 11.68 H Neut # (Auto) 9.36 H Creatinine 0.90 0.94 Est Cr Clr Drug Dosing 109.3 104.6 04/11/19 11:57 WBC 11.75 H Neut # (Auto) 9.64 H Creatinine Est Cr Clr Drug Dosing Micro Results: 04/11/19 11:57 Aerobic Blood Culture - Pending Blood Anaerobic Blood Culture - Pending 04/11/19 11:57 Aerobic Blood Culture - Pending Blood Anaerobic Blood Culture - Pending - Risk Factors for Resistance * Hospitalization for 48 hours or more within the past 90 days * Antimicrobial use within the last 90 days- unknown antibiotic. - Assessment & Plan Assessment 43 year old M recently diagnosed with Colorectal cancer with liver mets. He was found to have perirectal abscess while traveling to [place] and was hospitalized there for IV antibiotic treatment. He was discharged on po antibiotics. Antibiotic names are unknown. Infection worsened after he traveled back here; now re-admitted and started on Vancomycin and Zosyn. Patient had not started his Chemotherapy yet. Plan Vancomycin IV * Estimated PK Parameters: Vd 0.7 L/kg, Osmany = 7.62 hr-1, t1/2 = 0.091 hr * Loading dose: 1750 mg IV (20.6 mg/kg) x 1 dose given yesterday at 1530. * Maintenance dose: 1250 mg IV (14.7 mg/kg) every 10 hours started at midnight last night. * Goal trough level for SSTI: ~ 15 mcg/mL * Trough Vanco level ordered for 04/13 before dose at 06 AM. Pharmacy will continue to follow and will adjust dose/frequency as necessary. Thank you.
--- NOTE | 2019-04-12 15:41 | Hospitalist Progress Note ---
Date of Service April 12, 2019 Assessment & Plan (1) Perirectal abscess: History of larger abscess requiring drainage. Now with multiple collections but nothing sizable to drain. In [facility] for approximately 2 weeks as per patient on IV antibiotics and discharged home on moxifloxacin which stopped approximately 1 week prior to this admission. Will continue broad spectrum antibiotics for 48 hours until blood cultures back. Requested cultures from outside hospital help determine treatment beyond this period. Effectively did not fail oral antibiotics since he was off the antibiotic for a week although appears to have had a long course of antibiotics with recurrence which is concerning especially since he is due to start chemotherapy in the near future. Surgical and infectious disease consults appreciated. Present on Admission?: No (2) Colon cancer: Newly diagnosed distal infiltrative mass of distal sigmoid colon with metastatic disease. Followed up with Dr Yin @ [facility] [place] therefore will request records. Had planned to start chemotherapy here. (3) Perianal fistula: Around prior drain which spontaneously came out while travelling back from [place] 2 weeks prior to admission. No intervention at this point. (4) DVT prophylaxis: Will switch heparin for Lovenox to avoid multiple injections. Despite young age and mobility he has increased DVT/PE risk due to colorectal cancer diagnosis. Subjective Patient reports stable symptoms. Controlled with current pain medication. No nausea or vomiting. Revisited history with the patient: [place] his pain was better when on antibiotics, was feeling ok when he came [facility] [employer] but appeared to notice a decline once his antibiotics finished approximately 1 week ago. Denies any fevers or chills but recurrence in pain was similar to when he was first admitted to [facility]. He has discharge instructions with him showing he was discharged on moxifloxacin but no synopsis of his hospitalization. Review of Systems Review of Systems: All systems reviewed & are unremarkable except as noted in HPI & below Physical Exam Constitutional: WD/WN, vitals as above no acute distress (able to walk around the room) Eyes: + anicteric sclerae; normal pupil size ENMT: external ear and nose normal, oropharynx normal Neck: trachea midline, no thyromegaly neck nontender Respiratory: normal respiratory effort, lungs clear to auscultation does not use accessory muscles Cardiovascular: Rate/Rhythm: regular rate and regular rhythm Heart Sounds: normal S1 and normal S2; no gallop, no murmur and no cardiac rub Vessels: no JVD Extremities: no edema Gastrointestinal (Abdomen): Inspection/Auscultation: normal bowel sounds; abdomen not distended Percussion/Palpation: abdomen soft; abdomen nontender, no guarding and abdomen not rigid Musculoskeletal: no cyanosis or clubbing, extremities motor strength 5/5 Skin: no rashes, warm and dry normal turgor; no lesions Neurologic: moves all extremities and awake; no focal motor deficits Psychiatric: A+Ox3, euthymic affect Results & Data Vital Signs (Past 12 Hours) Vital Signs Temp Pulse Resp BP BP Pulse Ox 04/12/19 15:00 99.0 F 96 H 18 126/78 99 04/12/19 11:34 98.2 F 104 H 16 109/74 98 04/12/19 07:40 97.7 F 103 H 16 111/77 99 PG Care Time/CCT Total # of Minutes Spent Total Time Spent with Patient: Total time spent is greater than 50% in coordination of care (as documented) at patient's floor/unit and/or counseling patient: (1) Colon cancer Colon location: unspecified part of colon Qualified Code(s): C18.9 - Malignant neoplasm of colon, unspecified
[2019-04-12] MEDS: MoRPHine SULFATE 2 MG/ML CARP IV PRN ×3 (17:00→20:56)
[2019-04-12] MEDS ORDERED: OXYCODONE HCL IR 5 MG TAB (IMMEDIATE RELEASE) PO PRN (18:26)
[2019-04-12] MEDS ORDERED: POLYETHYLENE (MIRALAX) 17 GM PACK PO SCH (18:30)
[2019-04-12] MEDS: TRAZODONE HCL 50 MG TAB PO SCH (21:13)
[2019-04-12] MEDS: DOCUSATE SODIUM 100 MG CAP PO SCH (21:13)
[2019-04-12] MEDS: ENOXAPARIN INJ 40 MG/0.4 ML SYR SQ SCH (21:13)
[2019-04-13] MEDS: MoRPHine SULFATE 2 MG/ML CARP IV PRN ×5 (04:46→23:06)
[2019-04-13] MEDS: PIPERACILLIN/TAZOBACTAM 3.375 GM in DEXTROSE 5% 100 ML IV SCH ×3 (04:47→21:09)
[2019-04-13] MEDS ORDERED: VANCOMYCIN TROUGH ONE (05:30)
[2019-04-13 05:37] LABS: Hemoglobin 9.8 g/dL (14.0-18.0); Mean Corpuscular Hemoglobin 28.2 pg (25-34); Mean Corpuscular Hgb Conc 32.7 g/dL (32-36); Mean Corpuscular Volume 86.5 fL (80-100); Mean Platelet Volume 9.1 fL (7.4-10.4); Platelet Count 396 K/uL (130-400); RDW Coefficient of Variation 15.5 % (11.5-14.5); RDW Standard Deviation 49.6 fL (36.4-46.3); Red Blood Count 3.47 M/uL (4.7-6.1); White Blood Count 14.28 K/uL (4.8-10.8)
[2019-04-13] MEDS: VANCOMYCIN HCL 1,250 MG in SODIUM CHLORIDE 0.9% 250 ML IV SCH ×3 (06:02→22:27)
[2019-04-13 06:10] LABS: Albumin Level 2.8 gm/dl (3.4-5.0); BUN Creatinine Ratio 3.9 (10-20); Calcium 8.6 mg/dl (8.5-10.1); Creatinine Clr Calc Pharmacy 127.7 ml/min; Est GFR (African American) 128.8; Est GFR (Non-African American) 111.1; Magnesium 1.9 mg/dl (1.8-2.4); Potassium 3.3 mmol/L (3.5-5.1)
[2019-04-13 06:15] LABS: Albumin Globulin Ratio 0.7 (0.9-2); Bilirubin,Total 0.5 mg/dl (0.2-1); Total Protein 6.8 gm/dl (6.4-8.2)
--- NOTE | 2019-04-13 07:51 | Hospitalist Progress Note ---
Date of Service April 13, 2019 Assessment & Plan (1) Perirectal abscess: History of larger abscess requiring drainage. Now with multiple collections but nothing sizable to drain. Continue vancomycin and Zosyn pending blood cultures. If negative after 48 hours can be switched to ertapenem as well as white blood count does not continue to increase. Surgical and infectious disease consults appreciated. (2) Colon cancer: Newly diagnosed distal infiltrative mass of distal sigmoid colon with metastatic disease. Follow-up with Dr. Maxwell on discharge. Mutational analysis of pathology requested. (3) Perianal fistula: Around prior drain which spontaneously came out while travelling back from [place] 2 weeks prior to admission. No intervention at this point. (4) DVT prophylaxis: Continue Lovenox 40 mg SQ daily Subjective Patient seen lying in bed. He reports his pain was worse last night although with the increase in his pain regimen this is significantly alleviated the pain and today he feels improved. Concerning white blood count increased today although no fevers overnight. He reports having a moderate bowel movement yesterday. Fax from [facility] for prior cultures: Blood cultures 03/15 no growth after 5 days Abscess culture - Pansensitive E. Coli, Streptococcus anginosis, prevotella denticola (beta-lactamase negative) Discharge summary: Patient received 10 days Zosyn while in hospital and discharged with 10 days moxifloxacin Oncology appointment: Rather than setup to start chemotherapy he actually had an appointment with Dr Maxwell on Thursday. Discussed over the phone with Dr Maxwell who is aware of the patient and also recommended requesting mutational analysis from [place] (H IM request ordered) Review of Systems Review of Systems: All systems reviewed & are unremarkable except as noted in HPI & below Physical Exam Constitutional: WD/WN, vitals as above no acute distress (able to walk around the room) Eyes: + anicteric sclerae; normal pupil size ENMT: external ear and nose normal, oropharynx normal Neck: trachea midline, no thyromegaly neck nontender Respiratory: normal respiratory effort, lungs clear to auscultation Cardiovascular: Rate/Rhythm: regular rate and regular rhythm Heart Sounds: normal S1 and normal S2; no murmur Vessels: no JVD Extremities: no edema Gastrointestinal (Abdomen): Inspection/Auscultation: normal bowel sounds; abdomen not distended Percussion/Palpation: abdomen soft; abdomen nontender, no guarding and abdomen not rigid Healed drain site on right buttock without surrounding cellulitis, mildly tender on palpation. Musculoskeletal: no cyanosis or clubbing, extremities motor strength 5/5 Neurologic: moves all extremities and awake; no focal motor deficits and not confused Motor/Sensory: no sensory deficit Psychiatric: A+Ox3, euthymic affect Results & Data Vital Signs (Past 12 Hours) Vital Signs Temp Pulse Resp BP Pulse Ox 04/13/19 07:09 98.1 F 108 H 18 138/77 97 04/12/19 23:14 98.4 F 99 H 14 129/80 97 PG Care Time/CCT Total # of Minutes Spent Total Time Spent with Patient: Total time spent is greater than 50% in cook specialty foreign food rdination of care (as documented) at patient's floor/unit and/or counseling patient: (1) Colon cancer Colon location: unspecified part of colon Qualified Code(s): C18.9 - Malignant neoplasm of colon, unspecified
[2019-04-13] MEDS: OXYCODONE HCL IR 5 MG TAB (IMMEDIATE RELEASE) PO PRN (08:16)
[2019-04-13] MEDS: DOCUSATE SODIUM 100 MG CAP PO SCH ×2 (08:17→20:08)
[2019-04-13] MEDS: POLYETHYLENE (MIRALAX) 17 GM PACK PO SCH ×2 (08:51→20:09)
--- NOTE | 2019-04-13 10:12 | Pharmacy Report ---
Pharmacy Abx Dose Short Note - Date of Service April 13, 2019 - Assessment & Plan Assessment/Plan 43 year old M receiving vancomycin/zosyn for treatment of perirectal abscess. Day # 3/? of antimicrobial therapy. Abscess cultures from previous hospital were faxed in. Please see attending's note. D/w attending trough of 12mcg/mL. Given pt's clinical status and abscess, they would prefer more aggressive vanco concentrations. Plan is to shorten the dosing interval from vanco 1250mg q10 --> q8 to help raise the trough above 15mcg/mL. Trough reflective of Css ordered for 04/14 @1330. ID is following the pt. Pharmacy will continue to follow and will adjust dose/frequency as necessary. Thank you.
[2019-04-13] MEDS: ACETAMINOPHEN 325 MG TAB PO PRN ×2 (15:08→23:03)
--- NOTE | 2019-04-13 15:41 | Infectious Disease Progress Nt ---
Date of Service April 13, 2019 Assessment & Plan (1) Perirectal abscess: 43-year-old male with metastatic colorectal cancer, with abdominal and pelvic infection in the setting of cancer mass to the bowel wall with fistula formation, with small abscesses seen on CT scan. Patient to continue on present antibiotics for now, would consider changing to IV ertapenem if outpatient therapy desired this likely will need at least 7 to 10 days of IV antibiotics followed by prolonged antibiotics until source control can be achieved. (2) Colorectal cancer: Subjective Patient seen in follow-up for abdominal pelvic infection related to invasive colorectal carcinoma. Patient about the same today, still with significant amount of pain. Remains afebrile. Results from our hospital shows cultures positive for E. coli, Streptococcus, and Prevotella. Blood cultures remain no growth to date. Review of Systems Review of Systems: All systems reviewed & are unremarkable except as noted in HPI & below Physical Exam Constitutional: WD/WN, vitals as above comfortable; no acute distress Eyes: PERRL, conjunctivae normal, anicteric sclerae ENMT: external ear and nose normal, oropharynx normal Neck: trachea midline, no thyromegaly neck nontender Respiratory: normal respiratory effort, lungs clear to auscultation normal percussion; does not use accessory muscles Cardiovascular: Rate/Rhythm: regular rate and regular rhythm Heart Sounds: normal S1 and normal S2; no gallop, no murmur and no cardiac rub Vessels: normal peripheral pulses; no JVD Gastrointestinal (Abdomen): normal bowel sounds, soft, nontender, no hepatosplenomegaly Musculoskeletal: no cyanosis or clubbing, extremities motor strength 5/5 Spine: thoracic spine normal to inspection and lumbar spine normal to inspection; no cervical spinal tenderness Skin: no rashes, warm and dry normal turgor; no lesions Neurologic: moves all extremities and awake; no focal motor deficits and no meningeal signs Psychiatric: A+Ox3, euthymic affect Orientation: cooperative Lymphatic: no cervical or axillary lymphadenopathy no inguinal lymphadenopathy Results & Data Vital Signs (Past 12 Hours) Vital Signs Temp Pulse Resp BP Pulse Ox 04/13/19 15:06 39.0 C H 113 H 20 112/65 97 04/13/19 07:09 36.7 C 108 H 18 138/77 97 Laboratory Results Short CBC 04/13/19 Range/Units 05:26 WBC 14.28 H (4.8-10.8) K/uL Hgb 9.8 L (14.0-18.0) g/dL Hct 30.0 L (42-52) % Plt Count 396 (130-400) K/uL BMP 04/13/19 05:26 Sodium 138 Potassium 3.3 L D Chloride 109 H Carbon Dioxide 20 L BUN 3 L Creatinine 0.77 Glucose 104 H Calcium 8.6 Liver Function 04/13/19 Range/Units 05:26 Total Bilirubin 0.5 (0.2-1) mg/dl AST 57 H (15-37) U/L ALT 12 (12-78) U/L Alkaline Phosphatase 116 (45-117) U/L Albumin 2.8 L (3.4-5.0) gm/dl Diagnostic Findings Microbiology 04/11/19 11:57 Blood Aerobic Blood Culture - Preliminary No growth in Aerobic bottle after 48 hours. 04/11/19 11:57 Blood Anaerobic Blood Culture - Final 04/11/19 11:57 Blood Aerobic Blood Culture - Preliminary No growth in Aerobic bottle after 48 hours. 04/11/19 11:57 Blood Anaerobic Blood Culture - Preliminary No growth in Anaerobic bottle after 48 hours. PG Care Time/CCT Total # of Minutes Spent Total Time Spent with Patient: Total time spent is greater than 50% in coordination of care (as documented) at patient's floor/unit and/or counseling patient:
[2019-04-13] MEDS: TRAZODONE HCL 50 MG TAB PO SCH (20:08)
[2019-04-13] MEDS: ENOXAPARIN INJ 40 MG/0.4 ML SYR SQ SCH (20:09)
[2019-04-13] MEDS ORDERED: LACTATED RINGER'S 1,000 ML IV ONE (23:46)
--- NOTE | 2019-04-14 00:01 | Communication Note ---
Date of Service: April 13, 2019 Increasing heart rate and x2 spikes of temperature with associated chills. Suspect antibiotic resistance due to Zosyn previously given on prior hospital visit, rather than increasing abscess. Will repeat blood cultures, switch to ertapenem and re-hydrate with IV fluids. If continues to deteriorate will need repeat CT to assess for abscess size again.
[2019-04-14] MEDS: ERTAPENEM SODIUM 1,000 MG in SODIUM CHLORIDE 0.9% 50 ML IV SCH ×2 (00:42→23:58)
[2019-04-14] MEDS: LACTATED RINGER'S 1,000 ML IV SCH ×4 (00:42→23:57)
[2019-04-14] MEDS: VANCOMYCIN HCL 1,250 MG in SODIUM CHLORIDE 0.9% 250 ML IV SCH (05:23)
[2019-04-14] MEDS: MoRPHine SULFATE 2 MG/ML CARP IV PRN ×2 (05:29→13:37)
[2019-04-14 06:21] LABS: Basophils # (auto) 0.01 K/uL (0-0.2); Basophils % (auto) 0.1 %; Eosinophils # (auto) 0.03 K/uL (0-0.5); Eosinophils % (auto) 0.3 %; Hematocrit (blood only) 28.3 % (42-52); Hemoglobin 9.2 g/dL (14.0-18.0); Immature Granulocytes # (auto) 0.02 K/uL (0.00-0.02); Immature Granulocytes % (auto) 0.2 %; Lymphocytes # (auto) 0.98 K/uL (1.2-3.4); Lymphocytes % (auto) 8.6 %; Mean Corpuscular Hemoglobin 28.3 pg (25-34); Mean Corpuscular Hgb Conc 32.5 g/dL (32-36); Mean Corpuscular Volume 87.1 fL (80-100); Mean Platelet Volume 9.3 fL (7.4-10.4); Monocytes % (auto) 10.5 %; Neutrophils # (auto) 9.15 K/uL (1.4-6.5); Neutrophils % (auto) 80.3 %; Platelet Count 350 K/uL (130-400); RDW Coefficient of Variation 15.4 % (11.5-14.5); RDW Standard Deviation 49.8 fL (36.4-46.3); Red Blood Count 3.25 M/uL (4.7-6.1); White Blood Count 11.39 K/uL (4.8-10.8)
[2019-04-14 07:04] LABS: Albumin Level 2.4 gm/dl (3.4-5.0); BUN Creatinine Ratio 7.2 (10-20); Calcium 8.5 mg/dl (8.5-10.1); Creatinine Clr Calc Pharmacy 146.8 ml/min; Est GFR (African American) 136.4; Est GFR (Non-African American) 117.7; Potassium 3.7 mmol/L (3.5-5.1)
[2019-04-14 07:10] LABS: Albumin Globulin Ratio 0.6 (0.9-2); Bilirubin,Total 1.2 mg/dl (0.2-1); Globulin 4.1 gm/dl (2.5-4.0); Total Protein 6.5 gm/dl (6.4-8.2)
[2019-04-14] MEDS: OXYCODONE HCL IR 5 MG TAB (IMMEDIATE RELEASE) PO PRN ×4 (07:51→21:09)
[2019-04-14] MEDS: DOCUSATE SODIUM 100 MG CAP PO SCH ×2 (07:52→20:56)
[2019-04-14] MEDS: POLYETHYLENE (MIRALAX) 17 GM PACK PO SCH (07:52)
[2019-04-14] MEDS ORDERED: VANCOMYCIN TROUGH ONE (13:30)
[2019-04-14] MEDS: ACETAMINOPHEN 325 MG TAB PO PRN (17:12)
[2019-04-14] MEDS: ENOXAPARIN INJ 40 MG/0.4 ML SYR SQ SCH (20:56)
[2019-04-14] MEDS: TRAZODONE HCL 50 MG TAB PO SCH (20:56)
--- NOTE | 2019-04-14 21:06 | Hospitalist Progress Note ---
Date of Service April 14, 2019 Assessment & Plan (1) Perirectal abscess: History of larger abscess requiring drainage. Now with multiple collections but nothing sizable to drain. Initial blood cultures negative but given ongoing fever while on Zosyn will switch to ertapenem and will wait an additional [address] a US guided peripheral line for MTU or home antibiotics to finish up his course. Will continue IV fluids for additional 24 hours given tachycardia. Surgical and infectious disease consults appreciated. Present on Admission?: Yes (2) Colon cancer: Newly diagnosed distal infiltrative mass of distal sigmoid colon with metastatic disease. Follow-up with Dr. Maxwell on discharge (informed pt was in hospital yesterday). Mutational analysis of pathology requested. Present on Admission?: Yes (3) Perianal fistula: Around prior drain which spontaneously came out while travelling back from [place] 2 weeks prior to admission. No intervention at this point. Present on Admission?: Yes (4) DVT prophylaxis: Continue Lovenox 40 mg SQ daily Subjective Overnight had second temperature spike. [place] associated chills and was switched onto ertapenem with repeat cultures taken. He feels much the same today. Eating well. Passing soft stool. No abdominal pain, nausea or vomiting. Main complaint is the height of the toilet and causing pain whenever he goes, requested a stool to rest his legs on. Review of Systems Review of Systems: All systems reviewed & are unremarkable except as noted in HPI & below Physical Exam Constitutional: WD/WN, vitals as above (tachycardic) no acute distress Eyes: + anicteric sclerae; normal pupil size ENMT: external ear and nose normal, oropharynx normal Respiratory: normal respiratory effort, lungs clear to auscultation Cardiovascular: Rate/Rhythm: regular rate and regular rhythm Heart Sounds: normal S1 and normal S2; no murmur Vessels: no JVD Extremities: no edema Gastrointestinal (Abdomen): Inspection/Auscultation: normal bowel sounds; abdomen not distended Percussion/Palpation: abdomen soft; abdomen nontender, no guarding and abdomen not rigid fistula exit no re-examined today Musculoskeletal: no cyanosis or clubbing, extremities motor strength 5/5 Skin: no rashes, warm and dry Neurologic: moves all extremities and awake; no focal motor deficits and not confused Motor/Sensory: no tremor Psychiatric: A+Ox3, euthymic affect Results & Data Vital Signs (Past 12 Hours) Vital Signs Temp Pulse Resp BP Pulse Ox 04/14/19 20:57 98.8 F 04/14/19 18:29 99.9 F H 04/14/19 17:06 101.1 F H 04/14/19 15:41 98.6 F 04/14/19 15:24 101.1 F H 107 H 19 130/79 96 PG Care Time/CCT Total # of Minutes Spent Total Time Spent with Patient: Total time spent is greater than 50% in coordination of care (as documented) at patient's floor/unit and/or counseling patient: (1) Colon cancer Colon location: unspecified part of colon Qualified Code(s): C18.9 - Malignan t neoplasm of colon, unspecified
[2019-04-15] MEDS: OXYCODONE HCL IR 5 MG TAB (IMMEDIATE RELEASE) PO PRN ×4 (01:53→20:37)
[2019-04-15 05:16] LABS: Basophils # (auto) 0.02 K/uL (0-0.2); Basophils % (auto) 0.2 %; Eosinophils # (auto) 0.02 K/uL (0-0.5); Eosinophils % (auto) 0.2 %; Hematocrit (blood only) 27.9 % (42-52); Hemoglobin 9.1 g/dL (14.0-18.0); Immature Granulocytes # (auto) 0.02 K/uL (0.00-0.02); Immature Granulocytes % (auto) 0.2 %; Lymphocytes # (auto) 1.45 K/uL (1.2-3.4); Lymphocytes % (auto) 14.2 %; Mean Corpuscular Hemoglobin 28.4 pg (25-34); Mean Corpuscular Hgb Conc 32.6 g/dL (32-36); Mean Corpuscular Volume 87.2 fL (80-100); Mean Platelet Volume 9.4 fL (7.4-10.4); Monocytes % (auto) 12.7 %; Neutrophils # (auto) 7.43 K/uL (1.4-6.5); Neutrophils % (auto) 72.5 %; Platelet Count 344 K/uL (130-400); RDW Coefficient of Variation 15.5 % (11.5-14.5); RDW Standard Deviation 50.2 fL (36.4-46.3); White Blood Count 10.24 K/uL (4.8-10.8)
[2019-04-15 05:48] LABS: Albumin Level 2.4 gm/dl (3.4-5.0); BUN Creatinine Ratio 5.6 (10-20); Calcium 8.4 mg/dl (8.5-10.1); Creatinine Clr Calc Pharmacy 146.8 ml/min; Est GFR (African American) 136.4; Est GFR (Non-African American) 117.7; Potassium 3.9 mmol/L (3.5-5.1)
[2019-04-15 05:56] LABS: Albumin Globulin Ratio 0.6 (0.9-2); Bilirubin,Total 0.4 mg/dl (0.2-1); Total Protein 6.4 gm/dl (6.4-8.2)
[2019-04-15] MEDS ORDERED: VANCOMYCIN TROUGH ONE (07:30)
[2019-04-15] MEDS: POLYETHYLENE (MIRALAX) 17 GM PACK PO SCH (07:31)
[2019-04-15] MEDS: DOCUSATE SODIUM 100 MG CAP PO SCH ×2 (07:31→20:32)
[2019-04-15] MEDS: LACTATED RINGER'S 1,000 ML IV SCH (07:33)
[2019-04-15] MEDS: ACETAMINOPHEN 325 MG TAB PO PRN (15:42)
[2019-04-15] MEDS ORDERED: DAPTOmycin 500 MG VIAL IV SCH (15:45)
[2019-04-15] MEDS: DAPTOmycin 450 MG in SYRINGE 0 ML IV SCH (17:23)
--- NOTE | 2019-04-15 18:36 | Hospitalist Progress Note ---
Date of Service April 15, 2019 Assessment & Plan (1) Perirectal abscess: History of larger abscess requiring drainage. Now with multiple collections but nothing sizable to drain. Continues to spike temperatures - discussed with Dr Houston and recommended adding Daptomycin and rescan abdomen for possible progression. Patient remains non septic. Surgical and infectious disease consults appreciated. [facility] colorectal notes requested. (2) Colon cancer: Newly diagnosed distal infiltrative mass of distal sigmoid colon with metastatic disease. Follow-up with Dr. Maxwell on discharge (informed pt was in hospital). Mutational analysis of pathology requested. Tried calling hospital pathology lab in addition and left message to page back. (3) Perianal fistula: Around prior drain which spontaneously came out while travelling back from [place] 2 weeks prior to admission. No intervention at this point. (4) DVT prophylaxis: Continue Lovenox 40 mg SQ daily Subjective Ongoing temperature spikes and chills. No worsening rectal pain. Stable but making any very slow improvements. Having soft bowel movements. No problems with constipation. Eating and drinking well. Review of Systems Review of Systems: All systems reviewed & are unremarkable except as noted in HPI & below Physical Exam Constitutional: WD/WN, vitals as above (tachycardic) no acute distress ENMT: external ear and nose normal, oropharynx normal Neck: normal visual inspection; + trachea not midline Respiratory: normal respiratory effort, lungs clear to auscultation does not use accessory muscles Cardiovascular: Rate/Rhythm: regular rhythm and + tachycardic Heart Sounds: normal S1 and normal S2; no murmur Vessels: no JVD Extremities: no edema Gastrointestinal (Abdomen): Inspection/Auscultation: normal bowel sounds; abdomen not distended Percussion/Palpation: abdomen soft; abdomen nontender, no guarding and abdomen not rigid Musculoskeletal: no cyanosis or clubbing, extremities motor strength 5/5 Skin: no rashes, warm and dry Neurologic: moves all extremities and awake; no focal motor deficits and not confused Motor/Sensory: no tremor Psychiatric: A+Ox3, euthymic affect Results & Data Vital Signs (Past 12 Hours) Vital Signs Temp Pulse Pulse Pulse Resp BP BP 04/15/19 17:24 99.0 F 04/15/19 15:25 100.6 F H 98 H 16 112/73 04/15/19 07:30 99.9 F H 99 H 102 H 19 121/79 Pulse Ox 11/15/19 17:24 04/15/19 15:25 98 04/15/19 07:30 97 PG Care Time/CCT Total # of Minutes Spent Total Time Spent with Patient: Total time spent is greater than 50% in coordination of care (as documented) at patient's floor/unit and/or counseling patient: (1) Colon cancer Colon location: unspecified part of colon Qualified Code(s): C18.9 - Malignant neoplasm of colon, unspecified
[2019-04-15] MEDS ORDERED: IOVERSOL 100ml IV PRN (18:59)
--- NOTE | 2019-04-15 19:14 | CT Scan Report ---
CT abd pelvis oral and IV con CLINICAL HISTORY: Persistent fevers. Colorectal carcinoma. Pelvic abscesses. COMPARISON STUDY: 04/11/2019 TECHNIQUE: The patient was scanned following administration of dilute oral contrast, and in a dynamic helical fashion during intravenous administration of 92 cc of Optiray 320. A dose lowering techniqu e was utilized adhering to the principles of ALARA. CT DOSE: 485.30 mGy.cm FINDINGS: Lower chest: There are bilateral lower lobe and lingular atelectatic changes Liver: There are multiple large hepatic masses highly suspicious for metastasis. The largest left lob e mass measures 5 cm. The largest right lobe mass measures 5 cm. Gallbladder: Unremarkable. Spleen: Normal in size and attenuation. Pancreas: Unremarkable. Adrenal glands: Unremarkable. Kidneys: There is symmetric renal cortical enhancement. The kidneys are normal in size without hydron ephrosis. Bowel: There is a fluid-filled colon with multiple air-fluid levels. Again evident is a large rectosi gmoid mass which appears to measure approximately 6 cm in length. There is infiltration of the presac ral and perirectal sigmoid and rectal soft tissues. There are borderline enlarged lymph nodes in the mesial rectal fascia. There are no fluid collections to indicate an abscess. Peritoneum: There is no intraperitoneal free air or abdominal ascites. Vasculature: The abdominal aorta is normal in course and caliber. Adenopathy: There are borderline enlarged lymph nodes in the region of rectal fascia. There are borde rline enlarged Aortic lymph nodes as well as a mildly enlarged peripancreatic lymph node. Pelvic viscera: There is a rectosigmoid mass as described above. There is been resolution of the prev iously identified extraluminal perirectal air and small abscesses. There is a small right perianal si nus tract. Skeletal structures: No destructive osseous lesions are seen. IMPRESSION: 1. Large rectosigmoid mass highly suspicious for a carcinoma. 2. Interval resolution of the small perirectal abscesses with a residual right perianal sinus tract 3. Borderline enlarged lymph nodes in the region of rectal fascia suspicious for metastatic disease 4. Prominent periaortic and peripancreatic lymph nodes 5. Multiple hepatic masses consistent with hepatic metastasis Electronically signed by: Temo Beal M.D. 04/15/2019 7:13 PM
[2019-04-15] MEDS: TRAZODONE HCL 50 MG TAB PO SCH (20:32)
[2019-04-15] MEDS: ENOXAPARIN INJ 40 MG/0.4 ML SYR SQ SCH (20:34)
[2019-04-15] MEDS: ERTAPENEM SODIUM 1,000 MG in SODIUM CHLORIDE 0.9% 50 ML IV SCH (23:46)
[2019-04-16 06:26] LABS: Basophils # (auto) 0.01 K/uL (0-0.2); Basophils % (auto) 0.2 %; Eosinophils # (auto) 0.04 K/uL (0-0.5); Eosinophils % (auto) 0.6 %; Hematocrit (blood only) 28.3 % (42-52); Hemoglobin 9.2 g/dL (14.0-18.0); Immature Granulocytes # (auto) 0.01 K/uL (0.00-0.02); Immature Granulocytes % (auto) 0.2 %; Lymphocytes # (auto) 1.14 K/uL (1.2-3.4); Lymphocytes % (auto) 17.4 %; Mean Corpuscular Hgb Conc 32.5 g/dL (32-36); Mean Corpuscular Volume 86.3 fL (80-100); Mean Platelet Volume 9.2 fL (7.4-10.4); Monocytes # (auto) 0.83 K/uL (0.11-0.59); Monocytes % (auto) 12.6 %; Neutrophils # (auto) 4.54 K/uL (1.4-6.5); Platelet Count 416 K/uL (130-400); RDW Coefficient of Variation 15.4 % (11.5-14.5); RDW Standard Deviation 49.2 fL (36.4-46.3); Red Blood Count 3.28 M/uL (4.7-6.1); White Blood Count 6.57 K/uL (4.8-10.8)
[2019-04-16 07:04] LABS: Albumin Globulin Ratio 0.5 (0.9-2); Albumin Level 2.4 gm/dl (3.4-5.0); Bilirubin,Total 0.3 mg/dl (0.2-1); Calcium 8.9 mg/dl (8.5-10.1); Creatinine Clr Calc Pharmacy 146.8 ml/min; Est GFR (African American) 136.4; Est GFR (Non-African American) 117.7; Globulin 4.5 gm/dl (2.5-4.0); Potassium 3.8 mmol/L (3.5-5.1); Total Protein 6.9 gm/dl (6.4-8.2)
[2019-04-16] MEDS: OXYCODONE HCL IR 5 MG TAB (IMMEDIATE RELEASE) PO PRN ×3 (07:13→20:55)
[2019-04-16] MEDS: DOCUSATE SODIUM 100 MG CAP PO SCH ×2 (07:13→20:54)
[2019-04-16] MEDS: POLYETHYLENE (MIRALAX) 17 GM PACK PO SCH (07:13)
[2019-04-16] MEDS: DAPTOmycin 450 MG in SYRINGE 0 ML IV SCH (15:51)
[2019-04-16] MEDS: ENOXAPARIN INJ 40 MG/0.4 ML SYR SQ SCH (20:55)
[2019-04-16] MEDS: TRAZODONE HCL 50 MG TAB PO SCH (20:55)
[2019-04-16] MEDS: ERTAPENEM SODIUM 1,000 MG in SODIUM CHLORIDE 0.9% 50 ML IV SCH (23:31)
--- NOTE | 2019-04-16 23:45 | Hospitalist Progress Note ---
Date of Service April 16, 2019 Assessment & Plan (1) Perirectal abscess: History of larger abscess requiring drainage. Now with multiple collections but nothing sizable to drain. Rescanned yesterday with improvement. Discussed with Dr Houston and recommended staying on Daptomycin + ertapenem for full course duration. Will place line tomorrow if repeat blood cultures remain negative with aim of setting up home or MTU treatment on Thursday. Surgical and infectious disease consults appreciated. (2) Colon cancer: Newly diagnosed distal infiltrative mass of distal sigmoid colon with metastatic disease. Follow-up with Dr. Maxwell on discharge (informed pt was in hospital). Mutational analysis of pathology requested, recommend re-requesting on Thursday if not scanned in by HIM. (3) Perianal fistula: Around prior drain which spontaneously came out while travelling back from [place] 2 weeks prior to admission. No intervention at this point. (4) DVT prophylaxis: Continue Lovenox 40 mg SQ daily Subjective Feels he is slowly improving. Cannot relate this specifically to adding daptomycin but appears to be in less pain. Walking around the [place]. No concerns or complaints at this time. Review of Systems Review of Systems: All systems reviewed & are unremarkable except as noted in HPI & below Physical Exam Constitutional: WD/WN, vitals as above (tachycardic) no acute distress Eyes: + anicteric sclerae; normal pupil size Respiratory: normal respiratory effort, lungs clear to auscultation Cardiovascular: Rate/Rhythm: regular rhythm and + tachycardic Heart Sounds: normal S1 and normal S2; no murmur Gastrointestinal (Abdomen): Inspection/Auscultation: normal bowel sounds; abdomen not distended Percussion/Palpation: abdomen soft; abdomen nontender, no guarding and abdomen not rigid Musculoskeletal: no cyanosis or clubbing, extremities motor strength 5/5 Skin: no rashes, warm and dry Neurologic: moves all extremities and awake; no focal motor deficits and not confused Motor/Sensory: no tremor, no pronator drift and no sensory deficit Psychiatric: A+Ox3, euthymic affect Results & Data Vital Signs (Past 12 Hours) Vital Signs Temp Pulse Pulse Resp BP Pulse Ox 04/16/19 22:45 99.0 F 88 16 127/79 96 04/16/19 15:07 98.4 F 89 18 112/73 99 PG Care Time/CCT Total # of Minutes Spent Total Time Spent with Patient: Total time spent is greater than 50% in coordination of care (as documented) at patient's floor/unit and/or counseling patient: (1) Colon cancer Colon location: unspecified part of colon Qualified Code(s): C18.9 - M alignant neoplasm of colon, unspecified
[2019-04-17 05:37] LABS: Basophils # (auto) 0.02 K/uL (0-0.2); Basophils % (auto) 0.3 %; Eosinophils # (auto) 0.15 K/uL (0-0.5); Eosinophils % (auto) 2.4 %; Hemoglobin 8.8 g/dL (14.0-18.0); Immature Granulocytes # (auto) 0.01 K/uL (0.00-0.02); Immature Granulocytes % (auto) 0.2 %; Lymphocytes # (auto) 1.52 K/uL (1.2-3.4); Lymphocytes % (auto) 24.7 %; Mean Corpuscular Hemoglobin 28.1 pg (25-34); Mean Corpuscular Hgb Conc 32.6 g/dL (32-36); Mean Corpuscular Volume 86.3 fL (80-100); Mean Platelet Volume 8.8 fL (7.4-10.4); Monocytes # (auto) 0.76 K/uL (0.11-0.59); Monocytes % (auto) 12.3 %; Neutrophils % (auto) 60.1 %; Platelet Count 465 K/uL (130-400); RDW Coefficient of Variation 15.6 % (11.5-14.5); RDW Standard Deviation 49.8 fL (36.4-46.3); Red Blood Count 3.13 M/uL (4.7-6.1); White Blood Count 6.16 K/uL (4.8-10.8)
[2019-04-17 06:06] LABS: Albumin Globulin Ratio 0.5 (0.9-2); Albumin Level 2.4 gm/dl (3.4-5.0); BUN Creatinine Ratio 8.8 (10-20); Bilirubin,Total 0.2 mg/dl (0.2-1); Calcium 8.9 mg/dl (8.5-10.1); Creatinine Clr Calc Pharmacy 151.3 ml/min; Est GFR (African American) 138.1; Est GFR (Non-African American) 119.2; Globulin 4.4 gm/dl (2.5-4.0); Potassium 3.9 mmol/L (3.5-5.1); Total Protein 6.8 gm/dl (6.4-8.2)
[2019-04-17] MEDS: POLYETHYLENE (MIRALAX) 17 GM PACK PO SCH (08:51)
[2019-04-17] MEDS: OXYCODONE HCL IR 5 MG TAB (IMMEDIATE RELEASE) PO PRN ×2 (15:08→20:58)
[2019-04-17] MEDS ORDERED: ONDANSETRON INJ 2 MG/ML 2 ML VIAL IV PRN (16:07)
[2019-04-17] MEDS: DAPTOmycin 450 MG in SYRINGE 0 ML IV SCH (16:35)
[2019-04-17] MEDS: ENOXAPARIN INJ 40 MG/0.4 ML SYR SQ SCH (20:44)
[2019-04-17] MEDS: TRAZODONE HCL 50 MG TAB PO SCH (20:45)
[2019-04-17] MEDS: DOCUSATE SODIUM 100 MG CAP PO SCH (20:45)
--- NOTE | 2019-04-17 22:56 | Hospitalist Progress Note ---
Date of Service April 17, 2019 Assessment & Plan (1) Perirectal abscess: History of larger abscess requiring drainage. Now with multiple collections but nothing sizable to drain. Discussed with Dr Houston and recommended staying on Daptomycin + ertapenem for full 10-day total, may need to be switched to oral antibiotics after this in addition. Ultrasound-guided peripheral line placed today. Can be discharged once 5 additional days of ertapenem and daptomycin set up for her overall medical treatment unit. He should follow-up with infectious disease for further advice regarding oral antibiotics if he is required after he finishes his IV course. Surgical and infectious disease consults appreciated. (2) Colon cancer: Newly diagnosed on admission and [place] distal infiltrative mass of distal sigmoid colon with metastatic disease. Follow-up with Dr. Maxwell on discharge (informed pt was in hospital). Mutational analysis of pathology requested, recommend re-requesting on Thursday if not scanned in by HIM. (3) Perianal fistula: Around prior drain which spontaneously came out while travelling back from [place] 2 weeks prior to admission. No intervention at this point. (4) DVT prophylaxis: Continue Lovenox 40 mg SQ daily while in hospital (5) Discharge planning issues: He is medically stable for discharge. Plan discharge tomorrow with 5 days of IV ertapenem and daptomycin left for a total of 10-day course (not including Zosyn as this did not appear to to be treating his abscess). Ultrasound-guided line placed today. Once his treatment regimen can be set up at home he can be discharged. He requests oxycodone for pain relief on discharge as this is been useful for him. Zofran already added to discharge medication. Subjective No acute events overnight. All questions answered regarding plan discharge tomorrow with home administration of IV antibiotics or medical treatment unit. Informed Dr. Maxwell the patient is likely to get out of hospital tomorrow. We will try to get an appointment for him this week. Review of Systems Review of Systems: All systems reviewed & are unremarkable except as noted in HPI & below Physical Exam Constitutional: WD/WN, vitals as above (tachycardic) no acute distress Eyes: + anicteric sclerae; normal pupil size ENMT: external ear and nose normal, oropharynx normal Neck: trachea midline, no thyromegaly normal visual inspection; + trachea not midline Respiratory: normal respiratory effort, lungs clear to auscultation does not use accessory muscles Cardiovascular: Rate/Rhythm: regular rhythm and + tachycardic Heart Sounds: normal S1 and normal S2; no murmur Vessels: no JVD Extremities: no edema Gastrointestinal (Abdomen): Inspection/Auscultation: normal bowel sounds; abdomen not distended Percussion/Palpation: abdomen soft; abdomen nontender, no guarding and abdomen not rigid Musculoskeletal: no cyanosis or clubbing, extremities motor strength 5/5 Skin: no rashes, warm and dry normal turgor; no lesions Neurologic: moves all extremities and awake; no focal motor deficits and not confused Motor/Sensory: no tremor, no pronator drift and no sensory deficit Psychiatric: A+Ox3, euthymic affect Results & Data Vital Signs (Past 12 Hours) Vital Signs Temp Pulse Resp BP Pulse Ox 04/17/19 14:51 98.4 F 100 H 18 114/76 98 PG Care Time/CCT Total # of Minutes Spent Total Time Spent with Patient: Total time spent is greater than 50% in coordination of care (as documented) at patient's floor/unit and/or counseling patient: (1) Colon cancer Colon location: unspecified part of colon Qualified Code(s): C18.9 - Malignant neoplasm of colon, unspecified
[2019-04-18] MEDS: ERTAPENEM SODIUM 1,000 MG in SODIUM CHLORIDE 0.9% 50 ML IV SCH (00:26)
[2019-04-18 05:32] LABS: Basophils # (auto) 0.02 K/uL (0-0.2); Basophils % (auto) 0.3 %; Eosinophils # (auto) 0.18 K/uL (0-0.5); Eosinophils % (auto) 2.8 %; Hematocrit (blood only) 29.8 % (42-52); Hemoglobin 9.5 g/dL (14.0-18.0); Immature Granulocytes # (auto) 0.01 K/uL (0.00-0.02); Immature Granulocytes % (auto) 0.2 %; Lymphocytes # (auto) 1.68 K/uL (1.2-3.4); Lymphocytes % (auto) 25.7 %; Mean Corpuscular Hemoglobin 27.9 pg (25-34); Mean Corpuscular Hgb Conc 31.9 g/dL (32-36); Mean Corpuscular Volume 87.4 fL (80-100); Monocytes # (auto) 0.71 K/uL (0.11-0.59); Monocytes % (auto) 10.9 %; Neutrophils # (auto) 3.93 K/uL (1.4-6.5); Neutrophils % (auto) 60.1 %; Platelet Count 500 K/uL (130-400); RDW Coefficient of Variation 15.7 % (11.5-14.5); RDW Standard Deviation 50.5 fL (36.4-46.3); Red Blood Count 3.41 M/uL (4.7-6.1); White Blood Count 6.53 K/uL (4.8-10.8)
[2019-04-18 05:58] LABS: Albumin Level 2.6 gm/dl (3.4-5.0); Calcium 9.3 mg/dl (8.5-10.1); Creatinine Clr Calc Pharmacy 127.7 ml/min; Est GFR (African American) 128.8; Est GFR (Non-African American) 111.1
[2019-04-18 06:01] LABS: Albumin Globulin Ratio 0.6 (0.9-2); Bilirubin,Total 0.2 mg/dl (0.2-1); Ferritin 120.8 ng/ml (8-388); Globulin 4.6 gm/dl (2.5-4.0); Total Protein 7.2 gm/dl (6.4-8.2)
[2019-04-18] MEDS: POLYETHYLENE (MIRALAX) 17 GM PACK PO SCH (07:38)
[2019-04-18] MEDS: OXYCODONE HCL IR 5 MG TAB (IMMEDIATE RELEASE) PO PRN ×2 (07:47→13:30)
[2019-04-18] MEDS ORDERED: DAPTOmycin 450 MG in SYRINGE 0 ML IV SCH (12:30)
[2019-04-18] MEDS ORDERED: ERTAPENEM SODIUM 1,000 MG in SODIUM CHLORIDE 0.9% 50 ML IV SCH (15:30)
--- NOTE | 2019-04-19 07:58 | Discharge Summary ---
Date of Service April 18, 2019 Admission HPI Per Admitting Provider 43 years old man who is basically healthy until about a month and half ago when he was in [facility], diagnosed with perirectal abscess and colon cancer metastasized to the liver. Proven by liver biopsy. At that time he got a drain placed and he was started on IV antibiotics then switched to oral antibiotics. During his travel to [place] where he grew up, the drain fell out. He continued the oral antibiotics until a week ago. Then today he started having some heaviness in the rectal area and feeling of urgency, multiple visits to the bathroom with no bowel movement, said slight clear di scharge comes out. He denies any fever or chills but he felt that his infection is coming back, No family history of colorectal cancer. Admits to tobacco use but no alcohol CT scan abdomen and pelvis as below 1. Large infiltrative mass of the distal sigmoid colon measuring up to 3.3 cm compatible with colorectal carcinoma. The mass extends through the serosa into the adjacent sigmoid mesocolon abutting the prostate. There is a large associated perirectal/perianal fistula with extension through the levator ani musculature into the right gluteus papo. Small associated perirectal, perianal and gluteal abscess collections, predominantly containing air without significant drainable fluid. 2. Prominent periaortic lymph nodes with multiple metastatic nodes/soft tissue nodules of the pelvis as above. 3. Hepatic metastasis. 4. Moderate fecal retention without bowel obstruction identified. 5. Additional findings as above. Primary Care Provider: NO PCP Principal Diagnosis perirectal abscess Discharge Exam Constitutional: WD/WN, vitals as above (tachycardic) no acute distress Eyes: + anicteric sclerae; normal pupil size ENMT: external ear and nose normal, oropharynx normal Neck: trachea midline, no thyromegaly normal visual inspection; + trachea not midline Respiratory: normal respiratory effort, lungs clear to auscultation does not use accessory muscles Cardiovascular: Rate/Rhythm: regular rhythm and + tachycardic Heart Sounds: normal S1 and normal S2; no murmur Vessels: no JVD Extremities: no edema Gastrointestinal (Abdomen): Inspection/Auscultation: normal bowel sounds; abdomen not distended Percussion/Palpation: abdomen soft; abdomen nontender, no guarding and abdomen not rigid Musculoskeletal: no cyanosis or clubbing, extremities motor strength 5/5 Skin: no rashes, warm and dry normal turgor; no lesions Neurologic: moves all extremities and awake; no focal motor deficits and not confused Motor/Sensory: no tremor, no pronator drift and no sensory deficit Psychiatric: A+Ox3, euthymic affect Discharge Data Allergies Allergy/AdvReac Type Severity Reaction Status Date / Time No Known Allergies Allergy Unverified 04/11/19 11:28 Consultations 04/11/19 16:59 ED Decision to Admit Stat 04/11/19 19:35 Consult General Surgery Routine Consult Infectious Diseases Routine 04/12/19 15:38 Consult Health Information Management Routine 04/12/19 15:40 Consult Health Information Management Routine 04/13/19 14:37 Consult Health Information Management Routine 04/15/19 18:36 Consult Health Information Management Routine 04/17/19 22:57 Consult [facility] edger operator Routine Ordered Studies 04/11/19 12:18 CT abd pelvis IV con only Stat 04/15/19 15:42 CT abd pelvis oral and IV con Routine Hospital Course (1) Perirectal abscess: History of larger abscess requiring drainage. Now with multiple collections but nothing sizable to drain. Discussed with Dr Houston and recommended staying on Daptomycin + ertapenem for full 10-day total, may need to be switched to oral antibiotics after this in addition. Ultrasound-guided peripheral line placed today. Plan is to continue 7 more days of ertapenem and daptomycin. This has been set up for her overall medical treatment unit. He should follow-up with infectious disease for further advice regarding oral antibiotics if he is required after he finishes his IV course. Next thursday will need to followup with ID to discuss PO antibiotics. Surgical and infectious disease consults appreciated. (2) Colon cancer: Newly diagnosed on admission and [place] distal infiltrative mass of distal sigmoid colon with metastatic disease. Follow-up with Dr. Maxwell on discharge (informed pt was in hospital). Mutational analysis of pathology requested. (3) Perianal fistula: Around prior drain which spontaneously came out while travelling back from [place] 2 weeks prior to admission. No intervention at this point. (4) DVT prophylaxis: Continue Lovenox 40 mg SQ daily while in hospital (5) Discharge planning issues: He is medically stable for discharge. Plan discharge today with 7 additional days of IV ertapenem and daptomycin left for a total of 10-day course (not including Zosyn as this did not appear to to be treating his abscess). Ultrasound-guided line placed today. Once his treatment regimen can be set up at home he can be discharged. He requests oxycodone for pain relief on discharge as this is been useful for him. Ordered 5 mg of oxycodone with 20 tablets. Zofran already added to discharge medication. 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 Astudillo to be established with him for your primary care physician) Diet: Regular Addtl Attending Provider Instructions: You were admitted to [facility] from April 11-2018 due to recurrent perirectal/perianal abscess. This improved with intravenous antibiotics. On review by infectious disease it was recommended to continue IV antibiotics for a total 10-day course... Pending Studies at Discharge: No Stand-Alone Forms: My [facility], Smoking Cessation Medications and DC Order Prescriptions: New ertapenem 1 gram recon soln 1 g IM DAILY 5 Days Qty: 5 RF: 0 daptomycin 500 mg recon soln 450 mg IV DAILY Qty: 5 RF: 0 oxycodone 5 mg capsule 5 mg PO Q6H PRN (Reason: pain) Qty: 20 RF: 0 ondansetron 4 mg tablet,disintegrating 4 mg PO Q6H PRN (Reason: nausea and vomiting) Qty: 14 RF: 0 oxycodone 5 mg Tablet 5 mg PO Q4H PRN (Reason: pain) Qty: 20 RF: 0 Continued trazodone 50 mg Tablet 50 mg PO HS RF: 0 Discharge Orders: Discharge Order (Routine); Ordered 04/18/19 Ordered By: Selvin Herrera/Other Patient Handouts: Abx IV Administer Dc Admission Data Admit Date/Time: 04/11/19 19:36 Attending Provider: Selvin Alvares Admit Provider: Travis Beckwith Primary Care Provider: PCP,NO Other Providers: Travis Beckwith ; David Coyle ; Harley Houston Other Interventions: Discharge Summary Assessment (RN) Last Done: 04/18/19 16:11 DC Date/Time DO NOT enter until pt leaves facility: 04/18/19 17:30
== END 2019-04-18 17:30 | disposition home or self-care (01) | DRG 394 ==
LOC: ED 10:42 → 3N 19:36 → SUATTDRO 19:36 → 3N 20:42

== ENCOUNTER 2021-12-18 17:19 | Inpatient (IN) ==
--- NOTE | 2021-12-18 17:41 | ED Triage Note ---
Date of Service December 18, 2021 History of Present Illness This patient was briefly evaluated while in triage. An abbreviated physical exam was performed. This patient is a 46-year-old Male with past medical history of colon cancer who presents to the ED for evaluation of blood clots in his lungs. Patient had CT imaging done today for routine monitoring of his cancer and was called and told there was a blood clot in his lungs. Denies chest pain or shortness of breath. Physical Exam VITALS: Vitals are noted on the nurse's note and reviewed by myself. GENERAL: This is a 46-year-old male, in no acute distress, nondiaphoretic. SKIN: The skin was without rashes. HEART: Regular rate and rhythm without murmurs gallops or rubs. LUNGS: Clear to auscultation bilaterally without wheezes, rales or rhonchi. No retractions or accessory muscle use. NEURO: Patient was alert and oriented to person place and time. Initial orders for labs and / or imaging were placed and patient was placed in the waiting area until a bed is available. Please see further documentation for the full ED course.
[2021-12-18] MEDS ORDERED: Heparin IV Adult Wt-Based Standard WITH Bolus Protocol IV STA (17:47)
--- NOTE | 2021-12-18 17:52 | Emergency Department Note ---
Impression & Plan Pulmonary embolism, Colon cancer, DVT (deep venous thrombosis) ED Provider Note NAME: PELON WILLIAM AGE: 46 SEX: M : 1975 ARRIVES VIA: Walk-In INFORMANT: Patient ED PROVIDER(S): Cale Bruner DO CHIEF COMPLAINT: PEs HPI: Patient is a 46-year-old male with a past medical history of colorectal cancer with perianal fistula who presents to the ER following having CTs of the abdomen/pelvis as well as the chest done as an outpatient today which showed PEs . He denies any chest pain or shortness of breath. No swelling of the calves. No new belly pain. No nausea, vomiting, or diarrhea. Normal output through his ostomy. No dysuria, urgency, or frequency. No fevers. No recent surgeries. No recent trauma. No previous brain bleeds. No coughing up blood, vomiting blood, blood in the stool or dark tarry stools. ROS: See above HPI for pertinent positives & negatives. A total of 10 systems reviewed and were otherwise negative. PAST MEDICAL HISTORY:See Below PAST SURGICAL HISTORY:See Below FAMILY HISTORY:See Below SOCIAL HISTORY:See Below HOME MEDICATIONS:See Below ALLERGIES:See Below VITALS:See Below PHYSICAL EXAMINATION: GENERAL: Sitting up in bed, alert, well appearing, well nourished, no distress, non-toxic EYE EXAM: normal conjunctiva. OROPHARYNX: no exudate, no erythema, lips, buccal mucosa, and tongue normal and mucous membranes are moist NECK: supple, no nuchal rigidity, no adenopathy, non-tender LUNGS: Clear to auscultation. Normal chest wall mechanics HEART: Tachycardic, S1 normal and S2 normal ABDOMEN: abdomen soft, non-tender, normo-active bowel sounds, no masses, no rebound or guarding. UPPER EXTREMITIES: upper extremities are grossly normal. LOWER EXTREMITIES: No pitting edema. Calves are equal bilateral NEURO EXAM: Normal sensorium, cranial nerves II-XII grossly intact, normal speech, no gross weakness of arms, no gross weakness of legs. MEDICAL DECISION MAKING: Patient is a 46-year-old male who presents ER with above-stated complaint. IV was established blood work was obtained. Labs show no significant leukocytosis or anemia. INR was unremarkable. BMP with mild hypokalemia at 133. LFTs was unremarkable. T bili slightly up at 1.5. COVID was negative. CT of the chest showed segmental and subsegmental PEs. Duplex of lower extremity showed positive DVTs. He was persistently tachycardic. He has no bleeding risk factors as discussed above and he was placed on heparin drip and bolus. He was monitored closely. He was updated at bedside and admitted to the hospital for further work-up to Dr. Delcid. Triage Nursing notes reviewed. Limited review of prior medical records performed Vital Signs: reviewed and remarkable for tachy Differential diagnosis: Differential diagnoses includes but is not limited to pneumonia, bronchitis, COPD/Asthma exacerbation, pneumothorax, pulmonary embolism, congestive heart failure, acute coronary syndrome ER treatment provided: See below Diagnostics interpreted by me: ECG: Sinus tachycardia rate of 103 Left axis No PVCs QTC 437 Cardiac Monitoring: An order was placed for continuous cardiac monitoring. The monitor shows a rate of 101 with sinus rhythm. Laboratory studies: As stated above and show below. Imaging studies: CT angio of the chest was reviewed as was performed prior to arrival Duplex of lower extremity showed positive DVT Consultation(s): Discussed with Dr. Delcid for further evaluation Procedures: none Critical Care: I have personally spent 35 minutes of critical care time in the direct management of this patient. This includes bedside care, interpretation of diagnostic studies, and testing, discussion with consultants, patient, and family members, and other required patient management activities. This 35 minutes is in excess of all separately billable procedures. Past Med/Surg History Medical History (Updated 12/18/21 @ 23:49 by Cale Bruner DO) Abscess colon. "drained with tube" as per pt Colon cancer Situational anxiety RELATED CURRENT DX Surgical History History of cataract surgery RT/LEFT Port-A-Cath in place (05/11/19) Insertion of Mediport with Fluoroscopy into left internal jugular vein Dr. Coyle 05/11/19 [place] teeth extracted Family History Grandmother Breast cancer Other Family history non-contributory Social History Smoking Status: Former smoker Cigarettes Per Day: 5; Second Hand Exposure: Yes; Hx Alcohol Use: No Hx Substance Use: Yes Preferred Language: Macedonian Communication Ability: Effective Data Power Consultant Required: No Beliefs That Will Affect Care: None marital status: Single Current Living Situation: Parent Current Living Situation Comment: LIVES WITH MOTHER current occupational status: unemployed current occupation: [employer] Feels Safe at Home: Yes Assistive Devices: Glasses Allergies Allergies Allergy/AdvReac Type Severity Reaction Status Date / Time No Known Allergies Allergy Verified 12/18/21 20:42 Home Meds Home Medications Medication Instructions Recorded Confirmed capecitabine 500 mg tablet 2,000 mg PO BIDM 02/03/20 12/18/21 Chemo Med Iv 1 dose IV DIRECTED 12/18/21 12/18/21 acetaminophen 500 mg tablet 500 - 1,000 mg PO DIRECTED PRN 12/18/21 12/18/21 (Tylenol Extra Strength) Pain Results & Data (ED) Vital Signs Vital Signs - 24 hr 12/18/21 17:21 12/18/21 20:00 12/18/21 22:00 Temperature 36.9 C Temperature Source Temporal Artery Scan Pulse Rate 111 H Pulse Rate [Left Radial] 97 H 84 Pulse Rhythm [Left Radial] Regular Respiratory Rate 18 20 18 Respiratory Effort / Characteristics Non-Labored Spontaneous Non-Labored Non-Labored Respiratory Depth Normal Normal Normal Respiratory Pattern Regular Blood Pressure 121/76 Blood Pressure [Left Arm] 127/80 132/70 Blood Pressure Mean 91 Blood Pressure Mean [Left Arm] 95 90 Blood Pressure Position Sitting Pulse Oximetry 98 97 99 Oxygen Delivery Method Room Air Room Air Room Air Sepsis Recent Fever Within 48 Hours No Sepsis New/Unexplained Change in Mental Status No Sepsis Action Taken by Nursing No Action Required Laboratory Data Result diagrams: 12/18/21 18:30 12/18/21 18:30 Lab Results 12/18/21 12/18/21 12/18/21 Range/Units 18:30 18:30 18:30 WBC 5.34 (4.8-10.8) K/ul RBC 3.90 L (4.63-6.08) M/uL Hgb 14.4 (14.0-18.0) g/dl Hct 40.2 (40.1-51.0) % MCV 103.1 H (80.0-100.0) fL MCH 36.9 H (25.0-34.0) pg MCHC 35.8 (32.0-36.0) g/dL RDW Std Deviation 59.1 H (36.4-46.3) fL RDW Coeff of Torie 15.5 H (11.5-14.5) % Plt Count 126 L (130-400) K/uL MPV 10.8 (9.4-12.4) fL Immature Gran % (Auto) 1.1 % Neut % (Auto) 70.2 % Lymph % (Auto) 17.6 % Pickett % (Auto) 8.8 % Eos % (Auto) 1.7 % Baso % (Auto) 0.6 % Neut # (Auto) 3.75 (1.4-6.5) K/uL Lymph # (Auto) 0.94 L (1.2-3.4) K/uL Pickett # (Auto) 0.47 (0.24-0.82) K/uL Eos # (Auto) 0.09 (0-0.50) K/uL Baso # (Auto) 0.03 (0-0.2) K/uL Immature Gran # (Auto) 0.06 H (0.00-0.02) K/uL PT 11.6 (9.0-12.0) Seconds INR 1.1 (0.9-1.1) APTT 21.7 (21.0-31.0) Seconds PTT Ratio 0.8 Sodium 133 L (136-145) mmol/L Potassium 4.0 (3.5-5.1) mmol/L Chloride 103 (98-107) mmol/L Carbon Dioxide 22 (21-32) mmol/L Anion Gap 8 (3-11) BUN 11 (6-23) mg/dl Creatinine 0.85 (0.6-1.4) mg/dl Est Cr Clr Drug Dosing 112.1 ml/min Est GFR ( Amer) 121.1 ml/min Est GFR (Non-Af Amer) 104.5 ml/min BUN/Creatinine Ratio 12.9 (10-20) Glucose 180 H (70-99(Fasting)) mg/dl Calcium 8.7 (8.5-10.1) mg/dl Total Bilirubin 1.5 H (0.2-1.0) mg/dl AST 22 (13-39) U/L ALT 17 (7-52) U/L Alkaline Phosphatase 70 (34-104) U/L Total Protein 6.6 (6.0-8.3) gm/dl Albumin 4.0 (3.4-5.0) gm/dl Globulin 2.6 (2.5-4.0) gm/dl Albumin/Globulin Ratio 1.5 (0.9-2) SARS-CoV-2, RNA, NAAT (NEGATIVE) 12/18/21 Range/Units 18:59 WBC (4.8-10.8) K/ul RBC (4.63-6.08) M/uL Hgb (14.0-18.0) g/dl Hct (40.1-51.0) % MCV (80.0-100.0) fL MCH (25.0-34.0) pg MCHC (32.0-36.0) g/dL RDW Std Deviation (36.4-46.3) fL RDW Coeff of Torie (11.5-14.5) % Plt Count (130-400) K/uL MPV (9.4-12.4) fL Immature Gran % (Auto) % Neut % (Auto) % Lymph % (Auto) % Pickett % (Auto) % Eos % (Auto) % Baso % (Auto) % Neut # (Auto) (1.4-6.5) K/uL Lymph # (Auto) (1.2-3.4) K/uL Pickett # (Auto) (0.24-0.82) K/uL Eos # (Auto) (0-0.50) K/uL Baso # (Auto) (0-0.2) K/uL Immature Gran # (Auto) (0.00-0.02) K/uL PT (9.0-12.0) Seconds INR (0.9-1.1) APTT (21.0-31.0) Seconds PTT Ratio Sodium (136-145) mmol/L Potassium (3.5-5.1) mmol/L Chloride (98-107) mmol/L Carbon Dioxide (21-32) mmol/L Anion Gap (3-11) BUN (6-23) mg/dl Creatinine (0.6-1.4) mg/dl Est Cr Clr Drug Dosing ml/min Est GFR ( Amer) ml/min Est GFR (Non-Af Amer) ml/min BUN/Creatinine Ratio (10-20) Glucose (70-99(Fasting)) mg/dl Calcium (8.5-10.1) mg/dl Total Bilirubin (0.2-1.0) mg/dl AST (13-39) U/L ALT (7-52) U/L Alkaline Phosphatase (34-104) U/L Total Protein (6.0-8.3) gm/dl Albumin (3.4-5.0) gm/dl Globulin (2.5-4.0) gm/dl Albumin/Globulin Ratio (0.9-2) SARS-CoV-2, RNA, NAAT NEGATIVE (NEGATIVE) Administered Medications Heparin Sodium/Dextrose (Heparin Sodium/Dextrose) 25,000 units in 500 mls @ 27 mls/hr IV .[id number] [facility]; Protocol Stop: 01/17/22 18:14 Last Admin: 12/18/21 19:16 Dose: 1,350 units/hr, 27 mls/hr Documented By: NOEMY Co-signed By: JAMES Discontinued Medications Heparin Sodium (Porcine) (Heparin Sod (Porcine) 1000 Unit/Ml) 1 units IV NOW ONE Stop: 12/18/21 18:03 Last Admin: 12/18/21 19:15 Dose: 6,000 units Documented By: NOEMY Co-signed By: JAMES Heparin Sodium/Dextrose (Heparin Iv Adult Wt-Based Standard With Bolus Protocol) 1 each IV NOW STA; Protocol Stop: 12/18/21 17:48 Last Admin: 12/18/21 20:59 Dose: Not Given Documented By: NOEMY Imaging Data Radiologist's Impression: Venous Doppler Study 12/18/21 17:26 ULTRASOUND BILATERAL LOWER EXTREMITY VENOUS CLINICAL HISTORY: Pulmonary embolus. COMPARISON STUDY: No priors. TECHNIQUE: Real-time, grayscale, and color Doppler sonography of the deep veins of the right and left lower extremity was performed from the inguinal crease to the calf. Compression and augmentation were utilized. FINDINGS: Right lower extremity: There is no sonographic evidence of deep venous thrombosis in the right lower extremity. The common femoral, superficial femoral, and popliteal veins are patent and normally compressible. The greater saphenous vein and the profunda femoris vein at the junction with the common femoral vein are clear. The visualized calf veins are patent. Left lower extremity: There is occlusive deep venous thrombosis identified in the popliteal vein. This extends into the calf within the posterior tibial veins. The remaining calf vessels are patent. The common femoral vein and superficial femoral vein are patent and normally compressible. The greater saphenous vein and the profunda femoris vein at the junction with the common femoral vein are clear. IMPRESSION: 1. There is occlusive deep venous thrombosis in the left popliteal vein extending into the left calf. 2. There is no sonographic evidence of deep venous thrombosis in the right lower extremity. ACT 112: Negative or not required by law. Electronically signed by: Jareth Dill M.D. 12/18/2021 8:31 PM Discharge Plan Visit Data Chief Complaint: Abnormal Labs/Diagnostic Testing Stated Complaint: CT SCAN FOUND BLOOD CLOT IN LUNG ED Provider: Cale Bruner Discharge Problem: Pulmonary embolism, Colon cancer, DVT (deep venous thrombosis) Forms Stand Alone Forms: [facility] Prescriptions Prescriptions: No Action capecitabine 500 mg tablet 2,000 mg PO BIDM Rx Instructions: TAKE FOR 14 DAYS, THEN OFF 7 DAYS. acetaminophen [Tylenol Extra Strength] 500 mg Tablet 500 - 1,000 mg PO DIRECTED PRN (Reason: Pain) Chemo Med Iv 1 dose IV DIRECTED Rx Instructions: PER PT "EVERY 3 WEEKS". Referrals Referrals: Edgard Astudillo DO [Primary Care Provider] -
[2021-12-18] MEDS ORDERED: HEPARIN SOD (PORCINE) 1000 UNIT/ML IV ONE (18:02)
[2021-12-18] MEDS ORDERED: HEPARIN SODIUM/DEXTROSE 25,000 UNITS/500 ML BAG IV SCH (18:15)
[2021-12-18 18:54] LABS: Basophils # (auto) 0.03 K/uL (0-0.2); Basophils % (auto) 0.6 %; Eosinophils # (auto) 0.09 K/uL (0-0.50); Eosinophils % (auto) 1.7 %; Hematocrit (blood only) 40.2 % (40.1-51.0); Hemoglobin 14.4 g/dl (14.0-18.0); Immature Granulocytes # (auto) 0.06 K/uL (0.00-0.02); Immature Granulocytes % (auto) 1.1 %; Lymphocytes # (auto) 0.94 K/uL (1.2-3.4); Lymphocytes % (auto) 17.6 %; Mean Corpuscular Hemoglobin 36.9 pg (25.0-34.0); Mean Corpuscular Hgb Conc 35.8 g/dL (32.0-36.0); Mean Corpuscular Volume 103.1 fL (80.0-100.0); Mean Platelet Volume 10.8 fL (9.4-12.4); Monocytes # (auto) 0.47 K/uL (0.24-0.82); Monocytes % (auto) 8.8 %; Neutrophils # (auto) 3.75 K/uL (1.4-6.5); Neutrophils % (auto) 70.2 %; Platelet Count 126 K/uL (130-400); RDW Coefficient of Variation 15.5 % (11.5-14.5); RDW Standard Deviation 59.1 fL (36.4-46.3); White Blood Count 5.34 K/ul (4.8-10.8)
[2021-12-18 19:05] LABS: INR 1.1 (0.9-1.1); Partial Thromboplastin Ratio 0.8; Partial Thromboplastin Time 21.7 Seconds (21.0-31.0); Prothrombin Time 11.6 Seconds (9.0-12.0)
[2021-12-18 19:16] LABS: Albumin Globulin Ratio 1.5 (0.9-2); BUN Creatinine Ratio 12.9 (10-20); Bilirubin,Total 1.5 mg/dl (0.2-1.0); Calcium 8.7 mg/dl (8.5-10.1); Creatinine Clr Calc Pharmacy 112.1 ml/min; Est GFR (African American) 121.1 ml/min; Est GFR (Non-African American) 104.5 ml/min; Globulin 2.6 gm/dl (2.5-4.0); Total Protein 6.6 gm/dl (6.0-8.3)
--- NOTE | 2021-12-18 20:33 | Ultrasound Report ---
ULTRASOUND BILATERAL LOWER EXTREMITY VENOUS CLINICAL HISTORY: Pulmonary embolus. COMPARISON STUDY: No priors. TECHNIQUE: Real-time, grayscale, and color Doppler sonography of the deep veins of the right and left lower extremity was performed from the inguinal crease to the calf. Compression and augmentation wer e utilized. FINDINGS: Right lower extremity: There is no sonographic evidence of deep venous thrombosis in the right lower extremity. The common femoral, superficial femoral, and popliteal veins are patent and normally compr essible. The greater saphenous vein and the profunda femoris vein at the junction with the common fem oral vein are clear. The visualized calf veins are patent. Left lower extremity: There is occlusive deep venous thrombosis identified in the popliteal vein. Thi s extends into the calf within the posterior tibial veins. The remaining calf vessels are patent. The common femoral vein and superficial femoral vein are patent and normally compressible. The greater s aphenous vein and the profunda femoris vein at the junction with the common femoral vein are clear. IMPRESSION: 1. There is occlusive deep venous thrombosis in the left popliteal vein extending into the left calf. 2. There is no sonographic evidence of deep venous thrombosis in the right lower extremity. ACT 112: Negative or not required by law. Electronically signed by: Jareth Dill M.D. 12/18/2021 8:31 PM
--- NOTE | 2021-12-18 21:26 | History & Physical Report ---
Date of Service December 18, 2021 Assessment & Plan (1) Pulmonary embolism: Plan: - Incidental finding on chest CT today as an outpatient that was ordered as routine surveillance for his cancer. - Completely asymptomatic. Hemodynamically stable. On room air. - He was started on heparin drip in the ED, however given his metastatic disease, will be switched to Lovenox. - Coag panel prior to heparin gtt: within normal limits. - Admitted to a monitored bed. (2) DVT (deep venous thrombosis): Plan: - The right popliteal vein extending into calf. - Treatment as above. (3) Colorectal cancer: Plan: - Receives oral chemotherapy, capecitabine 2 g twice daily. - Has an ostomy, which will need to be emptied while he is here. Plan - Admit to PCU overnight. - Lovenox for PE/DVT tx. - Full code. History of Present Illness Chief Complaint: Pulmonary embolism on outpatient imaging Primary Care Provider: Edgard Astudillo DO Bob Campa is a 46-year-old male with past medical history of metastatic colon cancer who presents today at the referral of his oncologist due to a PE seen on chest CT. He was having this routine chest CT surveillance for metastatic disease, which none was seen however he does have a right-sided segmental/subsegmental pulmonary embolism. He is completely asymptomatic, he denies any chest pain, palpitations, shortness of breath, lightheadedness, dizziness, pain with respirations. Doppler study was done of his bilateral legs which showed occlusive DVT in the left popliteal vein extending into the left calf. He has not had any leg pain, calf swelling, or torturous veins. He has not had a blood clot before. In ED, he is slightly tachycardic, presenting heart rate 111, otherwise vital signs within normal limits and stable, he is 98% on room air. Labs largely unremarkable, renal function at baseline. Sodium slightly low at 133, T bili 1.5 is not a new finding, glucose 180. Allergies Allergy/AdvReac Type Severity Reaction Status Date / Time No Known Allergies Allergy Verified 12/18/21 20:42 Home Medications Medication Instructions Recorded Confirmed Type capecitabine 500 mg tablet 2,000 mg PO BIDM 02/03/20 12/18/21 History Chemo Med Iv 1 dose IV DIRECTED 12/18/21 12/18/21 History acetaminophen 500 mg tablet 500 - 1,000 mg PO DIRECTED PRN 12/18/21 12/18/21 History (Tylenol Extra Strength) Pain enoxaparin 80 mg/0.8 mL 80 mg (0.8 mL) subcut Q12H 30 days 12/19/21 Rx subcutaneous syringe (Lovenox) #48 mL Past Med/Surg History Medical History (Updated 12/18/21 @ 23:49 by Cale Bruner DO) Abscess colon. "drained with tube" as per pt Colon cancer Situational anxiety RELATED CURRENT DX Surgical History History of cataract surgery RT/LEFT Port-A-Cath in place (05/11/19) Insertion of Mediport with Fluoroscopy into left internal jugular vein Dr. Coyle 05/11/19 Sellers teeth extracted Family History Grandmother Breast cancer Other Family history non-contributory Social History Smoking Status: Former smoker Cigarettes Per Day: 5; Second Hand Exposure: No; Do You Dip or Chew Tobacco: No; Tobacco Cessation Education Requested by Patient: No Hx Alcohol Use: No Hx Substance Use: No Preferred Language: Lithuanian Communication Ability: Effective [employer] Required: No Beliefs That Will Affect Care: None marital status: Single Current Living Situation: Parent Current Living Situation Comment: LIVES WITH MOTHER current occupational status: unemployed current occupation: [employer] Other Information That Helps Us Care for You: No Feels Safe at Home: Yes Safety Concerns: Feels Safe At This Time Assistive Devices: None Assistive Devices Comment: readers Review of Systems Review of Systems: Constitutional: No fever/chills, weakness, fatigue, myalgias, anorexia, night sweats Eyes: No diplopia, no worsening or blurred vision ENT: normal hearing, no trouble swallowing Respiratory: No cough, sputum, dyspnea at rest or on exertion Cardiovascular: No chest pain, tightness or palpitations Abdomen: No pain, nausea, vomiting, diarrhea or constipation : Denies dysuria, hematuria, increased urgency/frequency, urinary retention Musculoskeletal: No joint pain, calf pain, swelling Neurologic: No weakness, numbness/tingling, or balance problems Psychiatric: No anxiety or depression Skin: No rash or itch Physical Exam Physical Exam: General: awake, alert, no apparent distress Head: Normocephalic, atraumatic ENT: PERRL, EOMI, no pharyngeal exudate, mucous membranes moist Chest: Clear to auscultation, on room air, no adventitious breath sounds Cardiac: Regular rate and rhythm, no murmur, no JVD, normal peripheral pulses, good capillary refill Abdominal: NABS x 4 quadrants, soft, nontender to palpation, no rebound, guarding or tenderness Extremities: Normal inspection, no peripheral edema or erythema, calfs nontender to palpation Psych: Normal mood and affect Neuro: AAO x 3, strength intact bilaterally and rated 5/5, no motor deficits, speech is clear, no peripheral sensory deficits Skin: no rash or erythema Results & Data Results & Data ([facility]) Vital Signs (Past 12 Hours) Vital Signs Temp Pulse Pulse Resp BP BP Pulse Ox 12/18/21 20:00 97 H 20 127/80 97 12/18/21 17:21 36.9 C 111 H 18 121/76 98 O2 Del Method 12/18/21 20:00 Room Air 12/18/21 17:21 Room Air Laboratory Results Abnormal lab results 12/18/21 12/18/21 Range/Units 18:30 18:30 RBC 3.90 L (4.63-6.08) M/uL MCV 103.1 H (80.0-100.0) fL MCH 36.9 H (25.0-34.0) pg RDW Std Deviation 59.1 H (36.4-46.3) fL RDW Coeff of Torie 15.5 H (11.5-14.5) % Plt Count 126 L (130-400) K/uL Lymph # (Auto) 0.94 L (1.2-3.4) K/uL Immature Gran # (Auto) 0.06 H (0.00-0.02) K/uL Sodium 133 L (136-145) mmol/L Glucose 180 H (70-99(Fasting)) mg/dl Total Bilirubin 1.5 H (0.2-1.0) mg/dl Diagnostic Findings Venous Doppler Study 12/18/21 17:26 ULTRASOUND BILATERAL LOWER EXTREMITY VENOUS CLINICAL HISTORY: Pulmonary embolus. COMPARISON STUDY: No priors. TECHNIQUE: Real-time, grayscale, and color Doppler sonography of the deep veins of the right and left lower extremity was performed from the inguinal crease to the calf. Compression and augmentation were utilized. FINDINGS: Right lower extremity: There is no sonographic evidence of deep venous thrombosis in the right lower extremity. The common femoral, superficial femoral, and popliteal veins are patent and normally compressible. The greater saphenous vein and the profunda femoris vein at the junction with the common femoral vein are clear. The visualized calf veins are patent. Left lower extremity: There is occlusive deep venous thrombosis identified in the popliteal vein. This extends into the calf within the posterior tibial veins. The remaining calf vessels are patent. The common femoral vein and superficial femoral vein are patent and normally compressible. The greater saphenous vein and the profunda femoris vein at the junction with the common femoral vein are clear. IMPRESSION: 1. There is occlusive deep venous thrombosis in the left popliteal vein extending into the left calf. 2. There is no sonographic evidence of deep venous thrombosis in the right lower extremity. ACT 112: Negative or not required by law. Electronically signed by: Jareth Dill M.D. 12/18/2021 8:31 PM ECG Additional Comments: Sinus tachycardia Otherwise normal ECG When compared with ECG of 11-APR-2019 11:47, No significant change was found. Code Status & VTE Plan Code Status Full code. Supervising Physician Co-Signing Physician Notes Attending addendum: I have physically seen this patient, have supervised the HARMEET's activities, and agree with the H&P unless as otherwise noted. Assessment and Plan: Pulmonary emboli right segmental and segmental/left popliteal DVT- Treat with Lovenox due to underlying metastatic cancer Admit to monitored bed Colorectal cancer- Continue oral chemotherapy capecitabine Remaining orders and notations as noted PG Care Time/CCT Total # of Minutes Spent Total Time Spent with Patient: Total time spent is greater than 50% in coordination of care (as documented) at patient's floor/unit and/or counseling patient: Coding Level of Care Code INT OBSERVATION CARE 70M LVL 3 Diagnoses Pulmonary embolism I26.99 DVT (deep venous thrombosis) I82.409 Colorectal cancer C19
[2021-12-19] MEDS ORDERED: ONDANSETRON INJ 2 MG/ML 2 ML VIAL IV PRN (02:09)
[2021-12-19] MEDS ORDERED: ACETAMINOPHEN 500 MG TAB PO PRN (02:09)
[2021-12-19] MEDS: ENOXAPARIN 80 MG/0.8 ML SYR SQ SCH ×2 (02:52→10:23)
[2021-12-19 06:13] LABS: Basophils # (auto) 0.04 K/uL (0-0.2); Basophils % (auto) 0.9 %; Eosinophils # (auto) 0.16 K/uL (0-0.50); Eosinophils % (auto) 3.7 %; Hematocrit (blood only) 40.9 % (40.1-51.0); Hemoglobin 14.6 g/dl (14.0-18.0); Immature Granulocytes # (auto) 0.02 K/uL (0.00-0.02); Immature Granulocytes % (auto) 0.5 %; Lymphocytes # (auto) 1.67 K/uL (1.2-3.4); Lymphocytes % (auto) 38.4 %; Mean Corpuscular Hgb Conc 35.7 g/dL (32.0-36.0); Mean Corpuscular Volume 103.5 fL (80.0-100.0); Mean Platelet Volume 10.1 fL (9.4-12.4); Monocytes # (auto) 0.71 K/uL (0.24-0.82); Monocytes % (auto) 16.3 %; Neutrophils # (auto) 1.75 K/uL (1.4-6.5); Neutrophils % (auto) 40.2 %; Platelet Count 144 K/uL (130-400); RDW Coefficient of Variation 15.4 % (11.5-14.5); RDW Standard Deviation 59.3 fL (36.4-46.3); Red Blood Count 3.95 M/uL (4.63-6.08); White Blood Count 4.35 K/ul (4.8-10.8)
[2021-12-19 06:46] LABS: Albumin Globulin Ratio 1.5 (0.9-2); BUN Creatinine Ratio 11.8 (10-20); Bilirubin,Total 1.4 mg/dl (0.2-1.0); Calcium 8.9 mg/dl (8.5-10.1); Creatinine Clr Calc Pharmacy 112.1 ml/min; Est GFR (African American) 121.1 ml/min; Est GFR (Non-African American) 104.5 ml/min; Globulin 2.6 gm/dl (2.5-4.0); Potassium 4.3 mmol/L (3.5-5.1); Total Protein 6.6 gm/dl (6.0-8.3)
--- NOTE | 2021-12-19 09:34 | Communication Note ---
Date of Service: December 19, 2021 By CMS guidelines, a determination that the admission or continued stay is not medically necessary has been made by a member of the UR committee and a physi tomasz for this hospital stay, therefore a Code 44 will be completed and the Inpatient admission will be changed to outpatient. Judson Lewis MD Member, Utilization Review Committee
[2021-12-19] MEDS ORDERED: ENOXAPARIN INJ 40 MG/0.4 ML SYR SQ ONE (10:14)
--- NOTE | 2021-12-19 18:33 | Discharge Summary ---
Date of Service December 19, 2021 Admission HPI Per Admitting Provider Bob Campa is a 46-year-old male with past medical history of metastatic colon cancer who presents today at the referral of his oncologist due to a PE seen on chest CT. He was having this routine chest CT surveillance for metastatic disease, which none was seen however he does have a right-sided segmental/subsegmental pulmonary embolism. He is completely asymptomatic, he denies any chest pain, palpitations, shortness of breath, lightheadedness, dizziness, pain with respirations. Doppler study was done of his bilateral legs which showed occlusive DVT in the left popliteal vein extending into the left calf. He has not had any leg pain, calf swelling, or torturous veins. He has not had a blood clot before. In ED, he is slightly tachycardic, presenting heart rate 111, otherwise vital signs within normal limits and stable, he is 98% on room air. Labs largely unremarkable, renal function at baseline. Sodium slightly low at 133, T bili 1.5 is not a new finding, glucose 180. Principal Diagnosis PE Discharge Exam In general he is awake and alert pleasant no distress. HEENT normocephalic atraumatic mucous membranes moist. Breathing unlabored no accessory muscle use good effort. Skin shows no rashes no pallor or icterus. Neuro without focal deficits. Discharge Data Allergies Allergy/AdvReac Type Severity Reaction Status Date / Time No Known Allergies Allergy Verified 12/18/21 20:42 Consultations 12/18/21 21:22 ED Decision to Admit Stat Ordered Studies 12/18/21 17:26 US leg [US venous doppler LE BI] Stat Hospital Course (1) Pulmonary embolism: - Incidental finding on chest CT today as an outpatient that was ordered as routine surveillance for his cancer. - Completely asymptomatic. Hemodynamically stable. On room air. -Started on heparin dripquickly transitioned to Lovenoxsafe/stable for home. Discussed that traditionally Lovenox has been the treatment of choice for venous thromboembolic disease in the context of malignancy, but there is generally very acceptable data for DOAC treatment as well. Given that this is new, and he is already been started on Lovenoxwe will continue it for now, but as time progresses, if the subcu injections or any undue hardship, discussed that he could talk with hematology about possibly changing to a DOAC if they agree. -Safe/stable for home (2) DVT (deep venous thrombosis): - The right popliteal vein extending into calf. -Same treatment as above (3) Colorectal cancer: - Receives oral chemotherapy, capecitabine 2 g twice daily. Plan safe/stable for home Total Time Total Time Spent Total Time Spent (In Minutes): Greater than 30 Discharge Plan Discharge Items Patient Disposition: Home - Self-Care Reason For Visit: PE Discharge Diagnosis: Pulmonary emboli (blood clot in the lungs) Activity: Resume your previous activity Non-emergency contact: Primary Care Provider and Oncologist Call non-emergency contact if: you have any medication questions and your symptoms worsen Follow-up/Referrals: Marissa Salazar MD [Resident] - 01/02/22 12:50 pm Diet: Regular Addtl Attending Provider Instructions: Pulmonary emboli -Blood clots are a very common problem when someone is going through cancer/cancer treatment. -Fortunately your vital signs are extremely stableand generally almost always once we have started a blood thinner people do not get worse. -For now we will have you on the Lovenox (enoxaparin) 80 mg in the morning, 80 mg in the evening. This generally is the most "tried and true" blood thinner whenever somebody has clots in the context of cancerhowever, the "direct oral anticoagulants" (such as Eliquis, Xarelto) also do generally show good efficacy in the context of cancerso as you continue to follow with oncology, if the shots are a problem, you can talk to them about possibly transitioning over to 1 of those pills. -In terms of recovery, let your symptoms be her guideclots tend to not be subtlewhen you are exerting, if you feel like you are doing too much/if you feel any significant shortness of breaththat would be a good cue to slow down. Pending Studies at Discharge: No Stand-Alone Forms: [employer] Smoking Cessation Medications and DC Order Prescriptions: New enoxaparin [Lovenox] 80 mg/0.8 mL syringe 80 mg subcut Q12H 30 Days Qty: 48 2RF Rx Instructions: 1 month supply Continued capecitabine 500 mg tablet 2,000 mg PO BIDM Rx Instructions: TAKE FOR 14 DAYS, THEN OFF 7 DAYS. acetaminophen [Tylenol Extra Strength] 500 mg Tablet 500 - 1,000 mg PO DIRECTED PRN (Reason: Pain) Chemo Med Iv 1 dose IV DIRECTED Rx Instructions: PER PT "EVERY 3 WEEKS". Discharge Orders: Discharge Order (Routine); Ordered 12/19/21 Ordered By: Cale Varela Admission Data Admit Date/Time: 12/18/21 21:30 Attending Provider: Cale Varela Admit Provider: Kristy Troncoso Primary Care Provider: Edgard Astudillo Other Providers: Nelson Botello Other Interventions: Discharge Summary Assessment (RN) Last Done: 12/19/21 10:24 Coding Level of Care Code 38466 OBS Care - Discharge Diagnoses Pulmonary embolism I26.99 DVT (deep venous thrombosis) I82.409 Colorectal cancer C19
--- NOTE | 2021-12-19 21:43 | Electrocardiogram Report ---
Test Reason : Blood Pressure : / mmHG Vent. Rate : 103 BPM Atrial Rate : 103 BPM P-R Int : 138 ms QRS Dur : 088 ms QT Int : 334 ms P-R-T Axes : 063 -10 050 degrees QTc Int : 437 ms Sinus tachycardia Otherwise normal ECG When compared with ECG of 11-APR-2019 11:47, No significant change was found Confirmed by Evelio Duong ([id number]) on 12/19/2021 9:42:52 PM Referred By: Risa Albarran Confirmed By:Eevlio Duong
== END 2021-12-19 11:46 | disposition home or self-care (01) | DRG 176 ==
LOC: ED 17:19 → EDINP 21:30 → SUATTDRO 21:30 → 2S 12-19 03:00